=== PATIENT | male | born 1970 | race Caucasian/White ===

== ENCOUNTER → 2024-09-30 | Outpatient (CLI) | payer BC, SELFPAY ==
--- NOTE | 2024-09-30 11:00 | XR_ITS ---
Examination: Ultrasound-guided paracentesis Abdominal sonogram limited Date and time of exam: September 30, 2024 1326 hours INDICATIONS: Cirrhosis, increasing ascites and abdominal distention this week Informed consent provided. A timeout was completed verifying correct patient, procedure, site, positioning, and special adequate movement if applicable. Technique: Multiple sonographic images of the abdomen have been obtained. Appropriate area for paracentesis was marked. Local anesthesia is obtained with 1% lidocaine. Yueh catheter is successfully introduced. Findings: Abdominal sonographic images demonstrate sufficient ascitic fluid for paracentesis. After placing the Yueh catheter, 14,650 cc of fluid were successfully removed. During and after completion of the procedure the patient appear in satisfactory and stable condition with no complications observed. Estimated blood loss 0 cc Impression: Abdominal ascites Successful ultrasound-guided paracentesis as described above
== END | disposition home or self-care (01) ==
PROVIDERS: PCP Internal Medicine; Referring Provider Internal Medicine; Visit Provider Internal Medicine
DX: K70.31 Alcoholic cirrhosis of liver with ascites (principal)
CPT/HCPCS: 49083

== ENCOUNTER → 2025-01-14 | Outpatient (CLI) | payer BC, SELFPAY ==
--- NOTE | 2025-01-14 11:00 | XR_ITS ---
Examination: Ultrasound-guided paracentesis Abdominal sonogram limited Date and time of exam: 01/14/2025, 1:17 PM INDICATION: Ascites Informed consent provided. A timeout was completed verifying correct patient, procedure, site, positioning, and special adequate movement if applicable. Technique: Multiple sonographic images of the abdomen have been obtained. Appropriate area for paracentesis was marked. Local anesthesia is obtained with 1% lidocaine. Yueh catheter is successfully introduced. Findings: Abdominal sonographic images demonstrate sufficient ascitic fluid for paracentesis. After placing the Yueh catheter, 10,200 cc of fluid were successfully removed. During and after completion of the procedure the patient appear in satisfactory and stable condition with no complications observed. Estimated blood loss 0 cc Impression: Abdominal ascites Successful ultrasound-guided paracentesis as described above
[2025-01-14 12:48] LABS: Basophils % (Auto) 0 % (0-2.5); Eosinophils # (Auto) 0.1 Thou/mm3 (0.0-0.5); Eosinophils % (Auto) 2 % (0-10); Immature Granulocytes % (Auto) 0 % (0-0); Immature Granulocytes Auto 0.01 Thou/mm3 (0.00-0.00); Lymphocytes # (Auto) 0.4 Thou/mm3 (1.0-4.8); Lymphocytes % (Auto) 12 % (10-50); Mean Corpuscular HGB Conc 34.8 g/dl (31.0-37.0); Mean Corpuscular Hemoglobin 34.6 pg (25.0-35.0); Mean Corpuscular Volume 100 fL (80-100); Monocytes # (Auto) 0.4 Thou/mm3 (0.0-0.8); Monocytes % (Auto) 11 % (0-12); Neutrophils # (Auto) 2.7 Thou/mm3 (1.8-7.7); Neutrophils % (Auto) 75 % (37-80); Nucleated Red Blood Cell % 0 /100 WBC (0); RDW Standard Deviation 54.4 fL (35.1-43.9); Red Blood Count 2.31 Miln/mm3 (4.50-5.90); White Blood Count 3.6 Thou/mm3 (3.8-10.6)
[2025-01-14 12:50] LABS: Platelet Count 61 Thou/mm3 (140-440)
[2025-01-14 13:04] LABS: INR 1.3 (0.9-1.3); Prothrombin Time 13.8 Seconds (9.0-12.2)
[2025-01-14 13:07] LABS: Slide Review Platelets confirmed
[2025-01-14] MEDS: ALBUMIN HUMAN 25% IVPB 25 GM/100 ML BTL IV ×2 (14:38→15:09)
== END | disposition home or self-care (01) ==
PROVIDERS: PCP Nurse Practitioner Family; Referring Provider Internal Medicine; Visit Provider Nurse Practitioner Family
DX: R18.8 Other ascites (principal)
CPT/HCPCS: 49083; 36415; 85025; 85610; 85730; C1729; P9047

== ENCOUNTER 2025-01-31 06:45 | Emergency (ER) | payer BC, SELFPAY ==
[2025-01-31 06:46] VITALS: BP 135/76; PULSE 95; RESP 18; TEMP 36.9; O2SAT 99; BMI 41.9
--- NOTE | 2025-01-31 06:49 | XR_ITS ---
Examination: Ultrasound-guided paracentesis Abdominal sonogram limited Date and time of exam: January 23, 2025 1138 hours INDICATIONS: Cirrhosis, increasing abdominal distention this week Informed consent provided. A timeout was completed verifying correct patient, procedure, site, positioning, and special adequate movement if applicable. Technique: Multiple sonographic images of the abdomen have been obtained. Appropriate area for paracentesis was marked. Local anesthesia is obtained with 1% lidocaine. Yueh catheter is successfully introduced. Findings: Abdominal sonographic images demonstrate sufficient ascitic fluid for paracentesis. After placing the Yueh catheter, 11,700 cc of fluid were successfully removed. During and after completion of the procedure the patient appear in satisfactory and stable condition with no complications observed. Estimated blood loss 0 cc Impression: Abdominal ascites Successful ultrasound-guided paracentesis as described above
--- NOTE | 2025-01-31 07:13 | PD.EDRME ---
Rapid Medical Screening Exam E Arrival date/time: 01/31/25 06:45 54-year-old male with history of cirrhosis and ascites presents to the emergency department today for complaints of abdominal distention requesting paracentesis Chief Complaint: Abdominal Pain Time Seen by Provider: 01/31/25 06:56 Vital signs: Vital Signs Temperature 98.4 F 01/31/25 06:46 Pulse Rate 95 01/31/25 06:46 Respiratory Rate 18 01/31/25 06:46 Blood Pressure 135/76 H 01/31/25 06:46 Pulse Oximetry (%) 99 01/31/25 06:46 Oxygen Delivery Method Room Air 01/31/25 06:46
[2025-01-31 08:05] LABS: Basophils % (Auto) 0 % (0-2.5); Eosinophils # (Auto) 0.1 Thou/mm3 (0.0-0.5); Eosinophils % (Auto) 2 % (0-10); Hematocrit 23.3 % (41.0-53.0); Immature Granulocytes % (Auto) 0 % (0-0); Immature Granulocytes Auto 0.01 Thou/mm3 (0.00-0.00); Lymphocytes # (Auto) 0.4 Thou/mm3 (1.0-4.8); Lymphocytes % (Auto) 11 % (10-50); Mean Corpuscular HGB Conc 34.8 g/dl (31.0-37.0); Mean Corpuscular Hemoglobin 35.8 pg (25.0-35.0); Mean Corpuscular Volume 103 fL (80-100); Monocytes # (Auto) 0.7 Thou/mm3 (0.0-0.8); Monocytes % (Auto) 19 % (0-12); Neutrophils # (Auto) 2.5 Thou/mm3 (1.8-7.7); Neutrophils % (Auto) 67 % (37-80); Nucleated Red Blood Cell % 0 /100 WBC (0); Red Blood Count 2.26 Miln/mm3 (4.50-5.90); White Blood Count 3.7 Thou/mm3 (3.8-10.6)
[2025-01-31 08:12] LABS: Alanine Aminotransferase 34 U/L (10-49); Albumin, Serum 2.9 gm/dL (3.5-5.0); Albumin/Globulin Ratio 0.8 (1.2-2.2); Alkaline Phosphatase 194 U/L (46-116); Anion Gap 8 (7-16); Aspartate Amino Transferase 59 U/L (0-34); BUN/Creatinine Ratio 17 Ratio (12-20); Bilirubin,Total 0.8 mg/dL (0.3-1.2); Blood Urea Nitrogen 41 mg/dL (9-23); Calcium 7.8 mg/dL (8.3-10.6); Calcium (Corrected) 8.7 mg/dL (8.5-10.1); Chloride 113 mMol/L (98-107); Creatinine (Component) 2.4 mg/dL (0.6-1.3); Globulin 3.5 gm/dL (2.3-3.5); Glucose 134 mg/dL (74-106); Osmolality,Calculated 291 (275-295); Potassium 4.4 mMol/L (3.4-5.1); Sodium 140 mMol/L (136-145); Total Protein 6.4 gm/dL (5.7-8.2); eGFR 31 See Note
[2025-01-31 08:15] LABS: Hemoglobin 8.1 g/dL (13.5-16.0); Platelet Count 58 Thou/mm3 (140-440)
[2025-01-31 08:19] VITALS: BP 134/80; PULSE 67; RESP 19; TEMP 36.6; O2SAT 100
[2025-01-31 08:24] LABS: Slide Review Platelets confirmed
[2025-01-31 08:33] LABS: INR 1.4 (0.9-1.3); Partial Thromboplastin Time 29.9 Seconds (22.0-36.0)
--- NOTE | 2025-01-31 09:36 | PD.EDABDPN ---
ED Abdominal Pain RME/HPI General Chief Complaint: Abdominal Pain Stated complaint: NEEDS PARACENTESIS Time seen by provider: 01/31/25 06:56 Arrival date/time: 01/31/25 06:45 RME / HPI RME / HPI narrative: 01/31/25 06:45 54-year-old male with history of cirrhosis and ascites presents to the emergency department today for complaints of abdominal distention requesting paracentesis DR. NEVILLE MAIN ED EVALUATION: 54 year old male with past medical history significant for liver cirrhosis with ascites due to chronic alcohol use disorder presents to the Emergency Department with complaint of abdominal distention, requesting paracentesis. Last drained was 01/14/2025. Otherwise denies any pain or shortness of breath. No fevers or chills. No other symptoms reported a this time. Related Data Home Medications ?Medication ?Instructions ?Recorded ?Confirmed furosemide 80 mg tablet 80 mg PO 1XD 08/07/24 08/07/24 Held on 08/12/24. Instructions: Resume on 08/23/24. Follow-up with PCP before resuming furosemide propranolol 10 mg tablet 10 mg 3XD 08/07/24 08/07/24 Previous Rx's ?Medication ?Instructions ?Recorded spironolactone 25 mg tablet 25 mg PO QDAY #30 tabs 11/02/23 Held on 08/12/24. Instructions: Resume on 08/23/24. Hold spironolactone until you follow-up with PCP Allergies Allergy/AdvReac Type Severity Reaction Status Date / Time No Known Allergies Allergy Verified 01/31/25 06:47 Review of Systems Review of Systems Systems Reviewed: All systems reviewed, normal except as documented Past Medical History Past Medical History NEUROLOGIC: Positive Neurological Disorders CARDIAC: Positive Cardiac Disorders and Hypertension GASTROINTESTINAL: Positive Gastrointestinal Disorders, Cirrhosis and Obesity HEMATOLOGIC: Positive Blood Disorders and Anemia OTHER HISTORY: Positive Blood Transfusions, Chicken Pox, Measles and Mumps Family History FAMILY HISTORY: Positive Family Cardiac Disorders Social History SMOKING STATUS: Never smoker SUBSTANCE USE: does not use ALCOHOL: Never ED Exam Narrative Physical exam: GENERAL APPEARANCE: alert and oriented x 4, well-developed, well-nourished, no acute distress VITALS: All vitals were reviewed and the pulse ox is 100% on room air, which is normal according to my interpretation. HEENT: Normocephalic, atraumatic; pupils equal, round, reactive to light; EOMI; mucous membranes pink, moist; oropharynx clear NECK: Supple LUNGS: CTABL; no wheezes, no rales, no rhonchi HEART: Regular rate, regular rhythm; normal S1, S2; no murmurs ABDOMEN: distended with fluid wave; normal BS; soft, no tenderness, no guarding, no rebound; no masses, no organomegaly, no hernia BACK: no CVA tenderness EXTREMITIES: atraumatic; no edema NEUROLOGIC: awake; alert and oriented x4; cranial nerves II-XII grossly intact; no focal sensory or motor deficits PSYCHIATRIC: appropriate mood and affect SKIN: warm, dry, normal color; no rashes Course Quality Measures none Orders Category Date Time Status US paracentesis abd w/image Stat Exams 01/31/25 06:49 Completed CBC Stat Lab 01/31/25 07:45 Completed Comprehensive Metabolic Panel Stat Lab 01/31/25 07:45 Completed Partial Thromboplastin Time Stat Lab 01/31/25 07:45 Completed Prothrombin Time with INR Stat Lab 01/31/25 07:45 Completed Lidocaine 1% Pf 30 ml [Xylocaine 1% Pf 30 ml] Med 01/31/25 11:17 Discontinued 30 ml .ROUTE .STK-MED ONE Reevaluation(s) Reevaluation #1: 11.7 liters were removed. I recommended albumin but the patient is leaving AMA. This patient is choosing to leave against medical advice. I have personally explained to the patient that choosing to do so may result in permanent bodily harm or . I discussed a great length that without further evaluation and monitoring there may be unforeseen circumstances and deterioration causing permanent bodily harm or as a result of their choice. The patient is alert, oriented and competent at this time. The patient states that they are aware of the serious risks as explained, but they continue to wish to leave against medical advice. In light of their decision to leave AMA, follow-up has been arranged and they are aware of the importance of following up as instructed. They have been advised that they should return to the ED immediately if they change their mind at any time, or if their condition begins to change or worsen. Time: 14:06 Vital Signs Vital signs: Vital Signs Temperature 98.4 F 01/31/25 06:46 Pulse Rate 95 01/31/25 06:46 Respiratory Rate 18 01/31/25 06:46 Blood Pressure 135/76 H 01/31/25 06:46 Pulse Oximetry (%) 99 01/31/25 06:46 Oxygen Delivery Method Room Air 01/31/25 06:46 Abdominal Pain MDM MDM Narrative MDM Narrative:: Lurdes Arora, yesenia scribing for and in the presence of Dr. Neville. Patient data External records reviewed:: [facility] previous records (Reviewed last admission discharge dated 08/12/24, patient admitted for the following: Acute upper GI bleed) Clinical information provided by:: patient Social determinants that could affect healthcare access:: alcohol use Patient has the following chronic illnesses:: liver cirrhosis with ascites due to chronic alcohol use disorder How is presenting disease/condition affected by chronic disease/condition?: caused by Evaluation data The following diagnostics were reviewed and interpreted by me:: lab results and radiology exam(s) Lab and/or radiology exams considered but not ordered:: none Interpretation Summary: Procedure(s): US paracentesis abd w/image Accession Number(s): [id number] cc: Kristin (JANA),Jaylen BATES; Ace Justice MD; Israel Eason MD~ Examination: Ultrasound-guided paracentesis Abdominal sonogram limited Date and time of exam: January 23, 2025 1138 hours INDICATIONS: Cirrhosis, increasing abdominal distention this week Informed consent provided. A timeout was completed verifying correct patient, procedure, site, positioning, and special adequate movement if applicable. Technique: Multiple sonographic images of the abdomen have been obtained. Appropriate area for paracentesis was marked. Local anesthesia is obtained with 1% lidocaine. Yueh catheter is successfully introduced. Findings: Abdominal sonographic images demonstrate sufficient ascitic fluid for paracentesis. After placing the Yueh catheter, 11,700 cc of fluid were successfully removed. During and after completion of the procedure the patient appear in satisfactory and stable condition with no complications observed. Estimated blood loss 0 cc Impression: Abdominal ascites Successful ultrasound-guided paracentesis as described above Dictated By: Ace Justice Medications / Prescriptions Medications or Prescriptions considered but not ordered:: none Medication administrations:: Medication Administration History Discontinued Medications Lidocaine HCl (Lidocaine Inj Pf 1% 30 Ml Vial) Confirm Administered Dose 30 ml .ROUTE .[facility]-MED ONE Stop: 01/31/25 11:18 see above if any Consultations Consultation(s) initiated? (list below): No Consultation #1 (Physician, Specialty, Details): left AMA Diagnosis Differential diagnosis abdominal pain: abdominal pain and other (ascites, CHF) Most likely diagnosis given after review of the tests above:: Ascites Status post abdominal paracentesis Admission Indicated Admission indicated?: not indicated Admission Request Was there a request for admission?: No Disposition Plan Disposition Plan: other (specify) (AMA) Discharge Plan Plan Patient Disposition: Left Against Medical Advice Prescriptions/Referrals Prescriptions/Med Rec: No Action spironolactone 25 mg tablet 25 mg PO QDAY Qty: 30 2RF propranolol 10 mg tablet 10 mg 3XD Patient Comments: TAKE 1 TABLET BY MOUTH THREE TIMES DAILY furosemide 80 mg tablet 80 mg PO 1XD Patient Comments: TAKE 1 TABLET BY MOUTH ONCE DAILY Referrals: Israel Helm MD [Primary Care Provider] - In 1 week Problem List Clinical Impression: Ascites, Status post abdominal paracentesis Patient/Caregiver Discharge Instructions Education Materials: Paracentesis Print Language: Faroese
[2025-01-31 10:00] VITALS: BP 124/84; PULSE 67; RESP 18; TEMP 36.6; O2SAT 100
--- NOTE | 2025-01-31 11:34 | PC.NURSE ---
PT TAKEN TO ULTRASOUND VIA W/C ACCOMPANIED BY U/S TECH.
--- NOTE | 2025-01-31 12:52 | PC.NURSE ---
Addendum entered by Priya John RN 01/31/25 13:37: 11.7 LITERS REMOVED. PT IS ANXIOUS TO BE DISCHARGED. Original Note: PT RETURNED FROM ULTRASOUND. PT AMB TO BR UNASSISTED; STABLE ON FEET.
--- NOTE | 2025-01-31 14:08 | PC.NURSE ---
PT REFUSED THE ALBUMIN DR. ALEMAN WAS GOING TO ORDER; SHE SAID TO HAVE THE PT SIGN THE AMA FORM SINCE HE WAS NOT GOING TO FOLLOW MD ORDERS. PT SIGNED FORM; IV DC'D W/O DIFFICULTY, PT TOLERATED WELL. PT AMB TO ER ENTRANCE.
== END 2025-01-31 14:08 | disposition left against medical advice (07) ==
PROVIDERS: Nurse Practitioner Primary Care; Emergency Provider Emergency Medicine; PCP Internal Medicine
DX: K70.31 Alcoholic cirrhosis of liver with ascites (principal)
CPT/HCPCS: 49083; 36415; 80053; 85025; 85610; 85730; 99284; C1729

== ENCOUNTER → 2025-03-01 | Outpatient (CLI) | payer BC, SELFPAY ==
--- NOTE | 2025-03-01 11:00 | XR_ITS ---
Examination: Ultrasound-guided paracentesis Abdominal sonogram limited Date and time of exam: March 01, 2025 1216 hours INDICATIONS: Cirrhosis, increasing ascites and abdominal distention this week Informed consent provided. A timeout was completed verifying correct patient, procedure, site, positioning, and special adequate movement if applicable. Technique: Multiple sonographic images of the abdomen have been obtained. Appropriate area for paracentesis was marked. Local anesthesia is obtained with 1% lidocaine. Yueh catheter is successfully introduced. Findings: Abdominal sonographic images demonstrate sufficient ascitic fluid for paracentesis. After placing the Yueh catheter, 13,050 cc of fluid were successfully removed. During and after completion of the procedure the patient appear in satisfactory and stable condition with no complications observed. Estimated blood loss 0 cc Impression: Abdominal ascites Successful ultrasound-guided paracentesis as described above
== END | disposition home or self-care (01) ==
PROVIDERS: Referring Provider Nurse Practitioner Family; Visit Provider Nurse Practitioner Family
DX: K70.31 Alcoholic cirrhosis of liver with ascites (principal)
CPT/HCPCS: 49083; C1729

== ENCOUNTER 2025-03-10 18:26 | Emergency (ER) | payer BC, SELFPAY ==
[2025-03-10 18:27] VITALS: BMI 40.3
[2025-03-10 19:57] VITALS: BP 121/75; PULSE 89; RESP 17; TEMP 37.2; O2SAT 98
--- NOTE | 2025-03-10 20:06 | XR_ITS ---
Examination: Abdomen sonogram, Limited Date and time of exam: March 10, 2025 2031 hours INDICATIONS: Cirrhosis with abdominal distention this week Technique: Real-time hartman scale transabdominal sonographic images of the abdomen obtained. Findings: Moderate ascites IMPRESSION: Moderate ascites
[2025-03-10 20:53] LABS: Basophils % (Auto) 0 % (0-2.5); Eosinophils % (Auto) 1 % (0-10); Immature Granulocytes % (Auto) 0 % (0-0); Immature Granulocytes Auto 0.02 Thou/mm3 (0.00-0.00); Lymphocytes # (Auto) 0.4 Thou/mm3 (1.0-4.8); Lymphocytes % (Auto) 8 % (10-50); Mean Corpuscular HGB Conc 34.2 g/dl (31.0-37.0); Mean Corpuscular Volume 100 fL (80-100); Monocytes # (Auto) 0.6 Thou/mm3 (0.0-0.8); Monocytes % (Auto) 13 % (0-12); Neutrophils # (Auto) 3.8 Thou/mm3 (1.8-7.7); Neutrophils % (Auto) 78 % (37-80); Nucleated Red Blood Cell % 0 /100 WBC (0); Platelet Count 99 Thou/mm3 (140-440); RDW Standard Deviation 53.1 fL (35.1-43.9); Red Blood Count 2.03 Miln/mm3 (4.50-5.90); White Blood Count 4.9 Thou/mm3 (3.8-10.6)
--- NOTE | 2025-03-10 21:00 | PD.EDRECHK ---
ED Recheck Abnl Lab Rx-RME/HPI General Chief Complaint: General Adult/Misc Complain Stated Complaint: NEEDS BLOOD TRANSFUSION, FATIGUE, MIND FOG Time Seen by Provider: 03/10/25 19:56 Arrival date/time: 03/10/25 18:26 43M with history of alcoholic cirrhosis presents to ED for generalized weakness and needing blood transfusion due to low outpatient labs. Patient denies bloody emesis and dark/red stool. Patient would like to be tapped if he can in the morning. Limitations: no limitations Related Data Home Medications ?Medication ?Instructions ?Recorded ?Confirmed furosemide 80 mg tablet 80 mg PO 1XD 08/07/24 08/07/24 Held on 08/12/24. Instructions: Resume on 08/23/24. Follow-up with PCP before resuming furosemide propranolol 10 mg tablet 10 mg 3XD 08/07/24 08/07/24 Previous Rx's ?Medication ?Instructions ?Recorded spironolactone 25 mg tablet 25 mg PO QDAY #30 tabs 11/02/23 Held on 08/12/24. Instructions: Resume on 08/23/24. Hold spironolactone until you follow-up with PCP Allergies Allergy/AdvReac Type Severity Reaction Status Date / Time No Known Allergies Allergy Verified 03/10/25 18:28 Review of Systems Review of Systems Systems Reviewed: All systems reviewed, normal except as documented Constitutional Constitutional: Reports system reviewed and no additional complaints, except as documented, Reports as per HPI, Denies fever(s), Denies headache(s) and Reports weakness ENT Ears, Nose, Mouth, and Throat: Denies disequilibrium and Denies headache(s) Cardiovascular Cardiovascular: Reports system reviewed and no additional complaints, except as documented, Denies chest pain and Denies dyspnea Respiratory Respiratory: Reports system reviewed and no additional complaints, except as documented, Denies cough and Denies dyspnea Gastrointestinal Gastrointestinal: Reports system reviewed and no additional complaints, except as documented, Denies abdominal pain, Denies nausea and Denies vomiting Neurologic Neurologic: Reports system reviewed and no additional complaints, except as documented, Denies confusion, Denies disequilibrium, Denies headache(s) and Reports weakness Psychiatric Psychiatric: Denies confusion Past Medical History Past Medical History NEUROLOGIC: Positive Neurological Disorders; Negative Seizures CARDIAC: Positive Cardiac Disorders and Hypertension; Negative Hypercholesterolemia or Congestive Heart Failure RESPIRATORY: Negative Chronic Obstructive Pulmonary Disease (COPD) or Asthma GASTROINTESTINAL: Positive Gastrointestinal Disorders, Cirrhosis and Obesity; Negative Pancreatitis, Gastrointestinal Bleed, Hemorrhoids or Gastroesophageal Reflux Disease GENITOURINARY: Negative Genitourinary Disorders, Renal Disease or Kidney Stones MUSCULOSKELETAL: Negative Musculoskeletal Disorders, Arthritis or Carpal Tunnel Syndrome ENT: Negative Cataracts ENDOCRINE: Negative Endocrine Disorders, Diabetes Mellitus Type 1 or Diabetes Mellitus Type 2 HEMATOLOGIC: Positive Blood Disorders and Anemia; Negative Sickle Cell Disease or Clotting Problems OTHER HISTORY: Positive Blood Transfusions, Chicken Pox, Measles and Mumps; Negative Autoimmune Disease, Falls, Blood Transfusion Reaction, Anesthesia Reactions or Cancer Family History FAMILY HISTORY: Positive Family Cardiac Disorders; Negative Family Psychiatric Problems, Family Respiratory Disorders, Family Gastrointestinal Problems, Family Cancer, Family Surgery or Family Anesthesia Reaction Surgical History SURGICAL: Negative Ear Surgery, Tympanostomy Tube, Eye Surgery, Nose Surgery, Oral Surgery, Tonsillectomy, Adenoidectomy, Cochlear Implant, Corneal Transplant, Throat Surgery, Abdominal Surgery, Tracheostomy, Gastric Bypass Surgery, Gastrostomy, Bowel Surgery, Nephrectomy, Transurethral Resection, Joint Replacement, Amputation, Open Reduction Internal Fixation, Arthroscopy, Neurologic Surgery, Brain Shunt or Vasectomy Social History SMOKING STATUS: Never smoker SUBSTANCE USE: does not use ED Exam General Limitations: Present no limitations General appearance: Present alert and in no apparent distress Head Head exam: Present atraumatic Eye Eye exam: Present normal appearance, PERRL and EOMI ENT ENT exam: Present normal exam, normal oropharynx and mucous membranes moist Neck Neck exam: Present normal inspection, full ROM and trachea midline Chest Chest inspection: Present normal inspection and symmetric chest wall rise Respiratory Respiratory exam: Present normal lung sounds bilaterally Cardiovascular Cardiovascular exam: Present regular rate, normal rhythm and normal heart sounds Abdominal Exam Abdominal exam: Present soft and normal bowel sounds Extremities Exam Extremities exam: Present normal inspection and full ROM Back Exam Back exam: Present normal inspection and full ROM Neurological Exam Neurological exam: Present alert, oriented X3 and CN II-XII intact Psychiatric Psychiatric exam: Present normal affect and normal mood Skin Skin exam: Present warm, dry, intact and normal color Course Quality Measures none Orders Category Date Time Status Insert IV NOW Care 03/10/25 21:45 Completed US abdomen limited Stat Exams 03/10/25 20:06 Completed US paracentesis abd w/image Stat Exams 03/11/25 05:14 Completed CBC Stat Lab 03/10/25 20:30 Completed CMP [Comprehensive Metabolic Panel] Stat Lab 03/10/25 20:30 Completed INR [Prothrombin Time with INR] Stat Lab 03/10/25 20:30 Completed PTT [Partial Thromboplastin Time] Stat Lab 03/10/25 20:30 Completed Path Review Blood Smear Stat Lab 03/10/25 20:30 Completed Type and Screen Stat Lab 03/10/25 20:30 Completed prbc [Red Blood Cells] Stat Lab 03/10/25 20:30 Completed Lidocaine 1% Pf 30 ml [Xylocaine 1% Pf 30 ml] Med 03/11/25 10:16 Discontinued 30 ml .ROUTE .STK-MED ONE Vital Signs Vital signs: Vital Signs Temperature 98.9 F 03/10/25 19:57 Pulse Rate 89 03/10/25 19:57 Respiratory Rate 17 03/10/25 19:57 Blood Pressure 121/75 03/10/25 19:57 Pulse Oximetry (%) 98 03/10/25 19:57 Oxygen Delivery Method Room Air 03/10/25 19:57 O2 at 98% on RA and WNLs Recheck / Abnormal Lab / Rx MDM Narrative MDM Narrative:: 43M with history of alcoholic cirrhosis presents to ED for generalized weakness and needing blood transfusion due to low outpatient labs. Patient denies bloody emesis and dark/red stool. Patient would like to be tapped if he can in the morning. Physical exam reveals well-appearing but tired male. Speech normal. Patient does not seem confused. Patient is afebrile, calm, and alert. HgB 6.9. Platelets 99. Coags and CMP unremarkable. US reveals moderate ascites. Patient would like to be tapped in AM. Patient given 2 units blood w/o issue. Ammonia normal. Care signed out to colleague. Patient was tapped and discharged. Patient data External records reviewed:: [facility] previous records Clinical information provided by:: patient Social determinants that could affect healthcare access:: alcohol use Patient has the following chronic illnesses:: alcoholic cirrhosis How is presenting disease/condition affected by chronic disease/condition?: caused by Evaluation data The following diagnostics were reviewed and interpreted by me:: lab results and radiology exam(s) Lab and/or radiology exams considered but not ordered:: ordered Interpretation Summary: above Medications / Prescriptions Medications or Prescriptions considered but not ordered:: ordered Medication administrations:: Medication Administration History Discontinued Medications Lidocaine HCl (Lidocaine Inj Pf 1% 30 Ml Vial) Confirm Administered Dose 30 ml .ROUTE .STK-MED ONE Stop: 03/11/25 10:17 above Consultations Consultation(s) initiated? (list below): No Diagnosis Recheck Differential Diagnosis: encounter for medication refill, encounter for wound recheck, encounter for recheck of burn, encounter for removal of sutures, warfarin-induced coagulopathy and other (anemia, ascites) Most likely diagnosis given after review of the tests above:: acites and anemia Admission Indicated Admission indicated?: not indicated Admission Request Was there a request for admission?: No Disposition Plan Disposition Plan: Discharge Discharge Attestation Discharge Attestation: The patient and all family members were given an opportunity to ask questions and understood the discharge instructions. Discharge instructions specifically effects, indications for sooner follow up or return to the emergency department, and the expected course of current diagnosis. Patient condition: Stable Discharge Plan Plan Patient Disposition: HOME (Self Care) Discharge Disposition comment: Stable Prescriptions/Referrals Prescriptions/Med Rec: No Action spironolactone 25 mg tablet 25 mg PO QDAY Qty: 30 2RF propranolol 10 mg tablet 10 mg 3XD Patient Comments: TAKE 1 TABLET BY MOUTH THREE TIMES DAILY furosemide 80 mg tablet 80 mg PO 1XD Patient Comments: TAKE 1 TABLET BY MOUTH ONCE DAILY Referrals: No Primary/Family,Physician [Primary Care Provider] - In 1 week Problem List Clinical Impression: Ascites due to alcoholic cirrhosis, Anemia Patient/Caregiver Discharge Instructions Education Materials: Paracentesis, Paracentesis Dc, ED Ascites, ED Cirrhosis Additional Instructions: Please follow-up with PCP within 24-48 hours and return immediately if symptoms worsen. Print Language: Ghanaian Stand Alone Forms: Patient Portal Info Letter QUINTON/MARILU Supervising Physician QUINTON/MARILU Supervising Physician: Dr. Boyer
[2025-03-10 21:07] LABS: Alanine Aminotransferase 21 U/L (10-49); Albumin, Serum 2.8 gm/dL (3.5-5.0); Albumin/Globulin Ratio 0.8 (1.2-2.2); Alkaline Phosphatase 165 U/L (46-116); Anion Gap 12 (7-16); Aspartate Amino Transferase 37 U/L (0-34); BUN/Creatinine Ratio 20 Ratio (12-20); Bilirubin,Total 0.7 mg/dL (0.3-1.2); Blood Urea Nitrogen 53 mg/dL (9-23); Calcium 7.9 mg/dL (8.3-10.6); Calcium (Corrected) 8.9 mg/dL (8.5-10.1); Carbon Dioxide 15.1 mMol/L (20.0-31.0); Chloride 107 mMol/L (98-107); Creatinine (Component) 2.7 mg/dL (0.6-1.3); Estimated Creatinine Clearance 37.4 mL/min (>60); Globulin 3.7 gm/dL (2.3-3.5); Glucose 102 mg/dL (74-106); Osmolality,Calculated 282 (275-295); Potassium 4.7 mMol/L (3.4-5.1); Sodium 134 mMol/L (136-145); Total Protein 6.5 gm/dL (5.7-8.2); eGFR 27 See Note
[2025-03-10 21:17] LABS: INR 1.4 (0.9-1.3); Partial Thromboplastin Time 35.5 Seconds (22.0-36.0); Prothrombin Time 14.7 Seconds (9.0-12.2)
[2025-03-10 21:40] LABS: Hematocrit 20.2 % (41.0-53.0); Hemoglobin 6.9 g/dL (13.5-16.0)
[2025-03-10 23:49] LABS: Path Review Blood Smear Sent to Pathologist
[2025-03-11] VITALS (28 sets, daily range): BP systolic 91–146; BP diastolic 44–87; PULSE 65–105; RESP 17–23; TEMP 36.4–37; O2SAT 91–100
--- NOTE | 2025-03-11 05:14 | XR_ITS ---
Examination: Ultrasound-guided paracentesis Abdominal sonogram limited Date and time of exam: March 11, 2025 1020 hours INDICATIONS: Cirrhosis, increasing ascites and abdominal distention this week Informed consent provided. A timeout was completed verifying correct patient, procedure, site, positioning, and special adequate movement if applicable. Technique: Multiple sonographic images of the abdomen have been obtained. Appropriate area for paracentesis was marked. Local anesthesia is obtained with 1% lidocaine. Yueh catheter is successfully introduced. Findings: Abdominal sonographic images demonstrate sufficient ascitic fluid for paracentesis. After placing the Yueh catheter, 9000 cc of fluid were successfully removed. During and after completion of the procedure the patient appear in satisfactory and stable condition with no complications observed. Estimated blood loss 0 cc Impression: Abdominal ascites Successful ultrasound-guided paracentesis as described above
--- NOTE | 2025-03-11 06:05 | PC.NURSE ---
Pt resting with eyes closed. Respirations are even and unlabored. No s/s of acute distress noted. Call light within reach, plan of care ongoing.
== END 2025-03-11 11:56 | disposition home or self-care (01) ==
PROVIDERS: Physician Assistant; Emergency Provider Emergency Medicine
DX: K70.31 Alcoholic cirrhosis of liver with ascites (principal); D64.9 Anemia, unspecified
CPT/HCPCS: 49083; 36415; 36430; 76705; 80053; 85025; 85610; 85730; 86850; 86900; 86901; 86921; 86922; 99285; C1729; P9016

== ENCOUNTER 2025-03-31 21:41 | Emergency (ER) | payer BC, SELFPAY ==
[2025-03-31 22:21] VITALS: BP 111/69; BP 117/44; PULSE 100; RESP 20; TEMP 37.1; O2SAT 96; BMI 41.9
--- NOTE | 2025-03-31 22:26 | PD.EDRME ---
Rapid Medical Screening Exam [facility] Arrival date/time: 03/31/25 21:41 54M with history of alcoholic cirrhosis presents to ED for generalized weakness and needing blood transfusion due to low outpatient labs. Patient denies bloody emesis and dark/red stool. Patient would like to be tapped if he can in the morning. Patient's hemoglobin was 7.6, which doesn't meet criteria for transfusion. Platelets 127. Patient does not want to wait until AM for para so will return in AM. Chief Complaint: General Adult/Misc Complain Vital signs: Vital Signs Temperature 98.8 F 03/31/25 22:21 Pulse Rate 100 03/31/25 22:21 Respiratory Rate 20 03/31/25 22:21 Blood Pressure 117/44 L 03/31/25 22:21 Pulse Oximetry (%) 96 03/31/25 22:21 Oxygen Delivery Method Room Air 03/31/25 22:21
[2025-03-31 23:06] LABS: Basophils % (Auto) 0 % (0-2.5); Eosinophils # (Auto) 0.1 Thou/mm3 (0.0-0.5); Eosinophils % (Auto) 2 % (0-10); Hematocrit 22.2 % (41.0-53.0); Immature Granulocytes % (Auto) 1 % (0-0); Immature Granulocytes Auto 0.05 Thou/mm3 (0.00-0.00); Lymphocytes # (Auto) 0.5 Thou/mm3 (1.0-4.8); Lymphocytes % (Auto) 6 % (10-50); Mean Corpuscular HGB Conc 34.2 g/dl (31.0-37.0); Mean Corpuscular Hemoglobin 32.2 pg (25.0-35.0); Mean Corpuscular Volume 94 fL (80-100); Monocytes # (Auto) 0.6 Thou/mm3 (0.0-0.8); Monocytes % (Auto) 8 % (0-12); Neutrophils # (Auto) 6.2 Thou/mm3 (1.8-7.7); Neutrophils % (Auto) 83 % (37-80); Nucleated Red Blood Cell % 0 /100 WBC (0); Platelet Count 127 Thou/mm3 (140-440); RDW Standard Deviation 53.9 fL (35.1-43.9); Red Blood Count 2.36 Miln/mm3 (4.50-5.90); White Blood Count 7.4 Thou/mm3 (3.8-10.6)
[2025-03-31 23:12] LABS: Alanine Aminotransferase 19 U/L (10-49); Albumin, Serum 2.8 gm/dL (3.5-5.0); Albumin/Globulin Ratio 0.7 (1.2-2.2); Alkaline Phosphatase 168 U/L (46-116); Anion Gap 14 (7-16); Aspartate Amino Transferase 37 U/L (0-34); BUN/Creatinine Ratio 23 Ratio (12-20); Bilirubin,Total 0.7 mg/dL (0.3-1.2); Blood Urea Nitrogen 70 mg/dL (9-23); Calcium 7.5 mg/dL (8.3-10.6); Calcium (Corrected) 8.5 mg/dL (8.5-10.1); Carbon Dioxide 19.9 mMol/L (20.0-31.0); Chloride 102 mMol/L (98-107); Estimated Creatinine Clearance 34.4 mL/min (>60); Globulin 3.9 gm/dL (2.3-3.5); Glucose 125 mg/dL (74-106); INR 1.4 (0.9-1.3); Osmolality,Calculated 293 (275-295); Partial Thromboplastin Time 34.1 Seconds (22.0-36.0); Potassium 3.5 mMol/L (3.4-5.1); Prothrombin Time 14.9 Seconds (9.0-12.2); Sodium 136 mMol/L (136-145); Total Protein 6.7 gm/dL (5.7-8.2); eGFR 24 See Note
[2025-03-31 23:13] LABS: Hemoglobin 7.6 g/dL (13.5-16.0)
--- NOTE | 2025-03-31 23:51 | PC.NURSE ---
PT INFORMED TODD PA THAT HE WILL GO HOME.
== END 2025-03-31 23:53 | disposition left against medical advice (07) ==
LOC: SERX 22:48
PROVIDERS: Physician Assistant; Emergency Provider Emergency Medicine
DX: R53.1 Weakness (principal); Z53.29 Procedure and treatment not carried out because of patient's decision for other reasons
CPT/HCPCS: 36415; 80053; 85025; 85610; 85730; 86850; 86900; 86901; 99281

== ENCOUNTER 2025-04-01 07:17 | Emergency (ER) | payer BC, SELFPAY ==
[2025-04-01 07:47] VITALS: BP 135/80; PULSE 84; RESP 20; TEMP 36.7; O2SAT 100; BMI 40.0
--- NOTE | 2025-04-01 08:16 | XR_ITS ---
Examination: Ultrasound-guided paracentesis Abdominal sonogram limited Date and time of exam: April 01, 2025 0954 hours INDICATIONS: Cirrhosis increasing abdominal distention this week Informed consent provided. A timeout was completed verifying correct patient, procedure, site, positioning, and special adequate movement if applicable. Technique: Multiple sonographic images of the abdomen have been obtained. Appropriate area for paracentesis was marked. Local anesthesia is obtained with 1% lidocaine. Yueh catheter is successfully introduced. Findings: Abdominal sonographic images demonstrate sufficient ascitic fluid for paracentesis. After placing the Yueh catheter, [id number] cc of fluid were successfully removed. During and after completion of the procedure the patient appear in satisfactory and stable condition with no complications observed. Estimated blood loss 0 cc Impression: Abdominal ascites Successful ultrasound-guided paracentesis as described above
--- NOTE | 2025-04-01 08:17 | EDRME_ITS ---
Rapid Medical Screening Exam [facility] Arrival date/time: 04/01/25 07:17 54-year-old male with a history of alcoholic liver cirrhosis, anemia, presents to the emergency room with a chief complaint of abdominal distention, shortness of breath x 3 days. Patient is here for an abdominal paracentesis. His last paracentesis was 1 month ago and they removed 11 L. I have greeted and performed a focused initial assessment of this patient. A comprehensive ED assessment and evaluation of the patient, analysis of all test results, and completion of the medical decision making process will be conducted by additional ED providers. Chief Complaint: Weakness Time Seen by Provider: 04/01/25 08:07 Vital signs: Vital Signs Temperature 98.1 F 04/01/25 07:47 Pulse Rate 84 04/01/25 07:47 Respiratory Rate 20 04/01/25 07:47 Blood Pressure 135/80 H 04/01/25 07:47 Pulse Oximetry (%) 100 04/01/25 07:47 Oxygen Delivery Method Room Air 04/01/25 07:47 Vital signs reviewed by provider: Yes
[2025-04-01 08:50] LABS: Basophils % (Auto) 0 % (0-2.5); Eosinophils # (Auto) 0.1 Thou/mm3 (0.0-0.5); Eosinophils % (Auto) 2 % (0-10); Hematocrit 24.1 % (41.0-53.0); Immature Granulocytes % (Auto) 1 % (0-0); Immature Granulocytes Auto 0.06 Thou/mm3 (0.00-0.00); Lymphocytes # (Auto) 0.4 Thou/mm3 (1.0-4.8); Lymphocytes % (Auto) 7 % (10-50); Mean Corpuscular Hemoglobin 32.3 pg (25.0-35.0); Mean Corpuscular Volume 95 fL (80-100); Monocytes # (Auto) 0.6 Thou/mm3 (0.0-0.8); Monocytes % (Auto) 11 % (0-12); Neutrophils # (Auto) 4.2 Thou/mm3 (1.8-7.7); Neutrophils % (Auto) 79 % (37-80); Nucleated Red Blood Cell % 0 /100 WBC (0); Platelet Count 115 Thou/mm3 (140-440); RDW Standard Deviation 54.6 fL (35.1-43.9); Red Blood Count 2.54 Miln/mm3 (4.50-5.90); White Blood Count 5.3 Thou/mm3 (3.8-10.6)
[2025-04-01 08:57] LABS: Hemoglobin 8.2 g/dL (13.5-16.0)
[2025-04-01 09:05] LABS: INR 1.4 (0.9-1.3); Partial Thromboplastin Time 35.2 Seconds (22.0-36.0); Prothrombin Time 14.6 Seconds (9.0-12.2)
[2025-04-01 09:06] LABS: Alanine Aminotransferase 19 U/L (10-49); Albumin, Serum 2.6 gm/dL (3.5-5.0); Albumin/Globulin Ratio 0.6 (1.2-2.2); Alkaline Phosphatase 175 U/L (46-116); Anion Gap 9 (7-16); Aspartate Amino Transferase 34 U/L (0-34); BUN/Creatinine Ratio 24 Ratio (12-20); Bilirubin,Total 0.6 mg/dL (0.3-1.2); Blood Urea Nitrogen 68 mg/dL (9-23); Calcium 7.3 mg/dL (8.3-10.6); Calcium (Corrected) 8.4 mg/dL (8.5-10.1); Carbon Dioxide 20.3 mMol/L (20.0-31.0); Chloride 107 mMol/L (98-107); Creatinine (Component) 2.8 mg/dL (0.6-1.3); Estimated Creatinine Clearance 35.9 mL/min (>60); Globulin 4.2 gm/dL (2.3-3.5); Glucose 122 mg/dL (74-106); Osmolality,Calculated 292 (275-295); Sodium 136 mMol/L (136-145); Total Protein 6.8 gm/dL (5.7-8.2); eGFR 26 See Note
--- NOTE | 2025-04-01 09:35 | PD.EDRECHK ---
ED Recheck Abnl Lab Rx-RME/HPI General Chief Complaint: Weakness Stated Complaint: Abdominal distention X 1 month, tired Time Seen by Provider: 04/01/25 08:07 Arrival date/time: 04/01/25 07:17 Limitations: no limitations RME / HPI RME / HPI narrative: 04/01/25 07:17 54-year-old male with a history of alcoholic liver cirrhosis, anemia, presents to the emergency room with a chief complaint of abdominal distention, shortness of breath x 3 days. Patient is here for an abdominal paracentesis. His last paracentesis was 1 month ago and they removed 11 L. I have greeted and performed a focused initial assessment of this patient. A comprehensive ED assessment and evaluation of the patient, analysis of all test results, and completion of the medical decision making process will be conducted by additional ED providers. DR. REESE MAIN ED EVALUATION: 54 year old male with history of liver cirrhosis with ascites secondary to chronic alcohol use disorder and anemia, presents to the ED requesting paracentesis for worsening abdominal distention over the past few weeks. Patient additionally reports he was sent here by his PCP yesterday for evaluation of low hemoglobin and potential blood transfusion. However, repeat HGB is 7.6 and did not meet transfusion criteria. Patient denies any other associated symptoms, including fevers, chills, sweats, chest pain, cough, shortness of breath, abdominal pain, nausea/vomiting/diarrhea, or urinary symptoms. Related Data Home Medications ?Medication ?Instructions ?Recorded ?Confirmed furosemide 80 mg tablet 80 mg PO 1XD 08/07/24 08/07/24 Held on 08/12/24. Instructions: Resume on 08/23/24. Follow-up with PCP before resuming furosemide propranolol 10 mg tablet 10 mg 3XD 08/07/24 08/07/24 Previous Rx's ?Medication ?Instructions ?Recorded spironolactone 25 mg tablet 25 mg PO QDAY #30 tabs 11/02/23 Held on 08/12/24. Instructions: Resume on 08/23/24. Hold spironolactone until you follow-up with PCP furosemide 40 mg tablet (Lasix) 40 mg PO QDAY #30 tabs 04/01/25 spironolactone 100 mg tablet 100 mg PO QDAY #30 tabs 04/01/25 (Aldactone) Allergies Allergy/AdvReac Type Severity Reaction Status Date / Time No Known Allergies Allergy Verified 04/01/25 07:21 Review of Systems Review of Systems Systems Reviewed: All systems reviewed, normal except as documented Past Medical History Past Medical History NEUROLOGIC: Positive Neurological Disorders CARDIAC: Positive Cardiac Disorders and Hypertension GASTROINTESTINAL: Positive Gastrointestinal Disorders, Cirrhosis and Obesity HEMATOLOGIC: Positive Blood Disorders and Anemia OTHER HISTORY: Positive Blood Transfusions, Chicken Pox, Measles and Mumps Family History FAMILY HISTORY: Positive Family Cardiac Disorders Social History SMOKING STATUS: Never smoker SUBSTANCE USE: does not use ED Exam General Limitations: Present no limitations General appearance: Present alert and in no apparent distress Head Head exam: Present atraumatic, normocephalic and normal inspection Eye Eye exam: Present normal appearance, PERRL and EOMI ENT ENT exam: Present normal exam, normal oropharynx and mucous membranes moist Neck Neck exam: Present normal inspection, full ROM and trachea midline Chest Chest inspection: Present normal inspection and symmetric chest wall rise Respiratory Respiratory exam: Present normal lung sounds bilaterally Cardiovascular Cardiovascular exam: Present regular rate, normal rhythm and normal heart sounds Abdominal Exam Abdominal exam: Present soft, distention (with fluid wave ) and normal bowel sounds Extremities Exam Extremities exam: Present normal inspection and full ROM Back Exam Back exam: Present normal inspection and full ROM Neurological Exam Neurological exam: Present alert, oriented X3 and CN II-XII intact Psychiatric Psychiatric exam: Present normal affect and normal mood Skin Skin exam: Present warm, dry, intact and normal color Course Quality Measures none Orders Category Date Time Status EKG (ED ONLY) *Do not use* NOW Care 04/01/25 09:40 Completed CXR2 [XR chest 2V] Stat Exams 04/01/25 09:40 Completed EKG (ED Only) Stat Exams 04/01/25 09:40 Draft US paracentesis abd w/image Stat Exams 04/01/25 08:16 Completed BNP [B-Type Natriuretic Peptide] Stat Lab 04/01/25 08:30 Completed CBC Stat Lab 04/01/25 08:30 Completed CMP [Comprehensive Metabolic Panel] Stat Lab 04/01/25 08:30 Completed Lipase Stat Lab 04/01/25 08:30 Completed PT [Prothrombin Time with INR] Stat Lab 04/01/25 08:30 Completed PTT [Partial Thromboplastin Time] Stat Lab 04/01/25 08:30 Completed Sed Rate (ESR) Stat Lab 04/01/25 08:30 Completed Troponin I Stat Lab 04/01/25 08:30 Completed Type and Screen Stat Lab 04/01/25 08:30 Completed Albumin Human 25% Ivpb [Albuminar-25 Ivpb] Med 04/01/25 12:48 Active 25 gm in 100 ml IV QDAY HYDROmorphone INJ [Dilaudid Inj] Med 04/01/25 09:34 Discontinued 1 mg IVP Q4H PRN HYDROmorphone INJ [Dilaudid Inj] Med 04/01/25 09:34 Discontinued 2 mg IVP X1 ONE Lidocaine 1% Pf 30 ml [Xylocaine 1% Pf 30 ml] Med 04/01/25 09:45 Discontinued 30 ml .ROUTE .STK-MED ONE Vital Signs Vital signs: Vital Signs Temperature 98.1 F 04/01/25 07:47 Pulse Rate 84 04/01/25 07:47 Respiratory Rate 20 04/01/25 07:47 Blood Pressure 135/80 H 04/01/25 07:47 Pulse Oximetry (%) 100 04/01/25 07:47 Oxygen Delivery Method Room Air 04/01/25 07:47 Pulse ox is 100% on room air which is adequate. Recheck / Abnormal Lab / Rx MDM Narrative MDM Narrative:: Kimberlee Arora am scribing for and in the presence of Dr. Reese. Patient data External records reviewed:: [facility] previous records (I reviewed yesterday ED visit on 03/31/2025) Clinical information provided by:: patient Social determinants that could affect healthcare access:: none Patient has the following chronic illnesses:: liver cirrhosis with ascites secondary to chronic alcohol use disorder and anemia How is presenting disease/condition affected by chronic disease/condition?: exacerbated by Evaluation data The following diagnostics were reviewed and interpreted by me:: lab results and radiology exam(s) Lab and/or radiology exams considered but not ordered:: None Interpretation Summary: Ordering Physician: Gee Carl Date of Service: 04/01/25 Procedure(s): US paracentesis abd w/image Accession Number(s): [id number] cc: Gee Carl; Ace Justice MD; Israel Eason MD~ Examination: Ultrasound-guided paracentesis Abdominal sonogram limited Date and time of exam: April 01, 2025 0954 hours INDICATIONS: Cirrhosis increasing abdominal distention this week Informed consent provided. A timeout was completed verifying correct patient, procedure, site, positioning, and special adequate movement if applicable. Technique: Multiple sonographic images of the abdomen have been obtained. Appropriate area for paracentesis was marked. Local anesthesia is obtained with 1% lidocaine. Yueh catheter is successfully introduced. Findings: Abdominal sonographic images demonstrate sufficient ascitic fluid for paracentesis. After placing the Yueh catheter, 10762 cc of fluid were successfully removed. During and after completion of the procedure the patient appear in satisfactory and stable condition with no complications observed. Estimated blood loss 0 cc Impression: Abdominal ascites Successful ultrasound-guided paracentesis as described above Dictated By: Ace Justice MD Signed By: <Electronically signed by Ace Justice MD in OV> 04/01/25 1138 Medications / Prescriptions Medications or Prescriptions considered but not ordered:: None Medication administrations:: Medication Administration History Albumin Human (Albuminar-25 Ivpb) 25 gm in 100 mls @ 300 mls/hr IV QDAY PHYLLIS Stop: 04/04/25 12:47 Last Admin: 04/01/25 13:31 Dose: 300 mls/hr Documented By: VG Discontinued Medications Hydromorphone HCl (Hydromorphone Inj 2 Mg/Ml Vial) 1 mg IVP Q4H PRN PRN Reason: PAIN SCALE 4-10(Mod-Sev Stop: 04/06/25 09:33 Hydromorphone HCl (Hydromorphone Inj 2 Mg/Ml Vial) 2 mg IVP X1 ONE Stop: 04/01/25 09:35 Last Admin: 04/01/25 11:54 Dose: Not Given Documented By: TM Non-Admin Reason: Cancelled by Provider Lidocaine HCl (Lidocaine Inj Pf 1% 30 Ml Vial) Confirm Administered Dose 30 ml .ROUTE .STK-MED ONE Stop: 04/01/25 09:46 Last Admin: 04/01/25 11:54 Dose: Not Given Documented By: TM Non-Admin Reason: Override Medication See above Consultations Consultation(s) initiated? (list below): No Diagnosis Recheck Differential Diagnosis: other (anemia, ascites, liver cirrhosis, abdominal pain) Most likely diagnosis given after review of the tests above:: Ascites due to cirrhosis Chronic hypotension Hernia Alcoholic cirrhosis of liver Admission Indicated Admission indicated?: not indicated Admission Request Was there a request for admission?: No Disposition Plan Disposition Plan: Discharge Discharge Attestation Discharge Attestation: The patient and all family members were given an opportunity to ask questions and understood the discharge instructions. Discharge instructions specifically effects, indications for sooner follow up or return to the emergency department, and the expected course of current diagnosis. Patient condition: Stable Discharge Plan Plan Patient Disposition: HOME (Self Care) Patient condition on transfer: Stable Prescriptions/Referrals Prescriptions/Med Rec: New furosemide [Lasix] 40 mg tablet 40 mg PO QDAY Qty: 30 0RF spironolactone [Aldactone] 100 mg tablet 100 mg PO QDAY Qty: 30 0RF No Action spironolactone 25 mg tablet 25 mg PO QDAY Qty: 30 2RF propranolol 10 mg tablet 10 mg 3XD Patient Comments: TAKE 1 TABLET BY MOUTH THREE TIMES DAILY furosemide 80 mg tablet 80 mg PO 1XD Patient Comments: TAKE 1 TABLET BY MOUTH ONCE DAILY Referrals: Israel Salinas MD [Primary Care Provider] - In 1 week Problem List Clinical Impression: Ascites due to alcoholic cirrhosis, Chronic hypotension, Hernia, Alcoholic cirrhosis of liver Clinical Impression: (Ruled Out): Rhabdomyolysis Patient/Caregiver Discharge Instructions Education Materials: Paracentesis Print Language: Belizean Stand Alone Forms: Vanessa Award Info., Patient Portal Info Letter
--- NOTE | 2025-04-01 09:40 | EKG_ITS ---
[facility] Test Date: 2025-04-01 Pat Name: CONNOR JAIME Department: Room: - Gender: Male Specialty Development Consultant: : 1970 Requested By: Abdulaziz Rey Order Number: [id number] Reading MD: Abdulaziz Rey Measurements Intervals [place] Rate: 69 P: 17 NM: 194 QRS: 9 QRSD: 103 T: 17 QT: 407 QTc: 438 Interpretive Statements SINUS RHYTHM Compared to ECG 08/07/2024 05:49:26 Sinus tachycardia no longer present /store/S0/[id number].pdf
--- NOTE | 2025-04-01 09:40 | XR_ITS ---
Examination: PA lateral chest 2 views TECHNIQUE: Upright PA lateral chest 2 views Date and time: April 01, 2025 1114 hours Comparison August 07, 2024 INDICATIONS: Post thoracentesis FINDINGS: Atelectasis in the lower lung zones No pneumothorax Normal heart size Blunting both costophrenic angles IMPRESSION: Bilateral subsegmental atelectasis in
[2025-04-01 10:25] LABS: Lipase 96 U/L (12-53); Troponin I < 0.002 ng/mL (0.0-0.045)
[2025-04-01 11:08] LABS: B-Type Natriuretic Peptide 28 pg/mL (0-100)
[2025-04-01 11:09] LABS: Sed Rate (ESR) 65 mm/hr (0-20)
[2025-04-01 12:31] VITALS: BP 120/75; PULSE 87; RESP 19; TEMP 36.8; O2SAT 95
[2025-04-01] MEDS: ALBUMIN HUMAN 25% IVPB 25 GM/100 ML BTL IV (13:31)
[2025-04-01 14:00] VITALS: BP 109/77; PULSE 81; RESP 19; TEMP 36.7; O2SAT 100
== END 2025-04-01 14:41 | disposition home or self-care (01) ==
PROVIDERS: Nurse Practitioner Family; Emergency Provider Emergency Medicine; PCP Internal Medicine
DX: K70.31 Alcoholic cirrhosis of liver with ascites (principal); I95.89 Other hypotension; K46.9 Unspecified abdominal hernia without obstruction or gangrene
CPT/HCPCS: 49083; 36415; 71046; 80053; 83690; 83880; 84484; 85025; 85610; 85652; 85730; 86850; 86900; 86901; 93005; 96365; 99284; C1729; P9047

== ENCOUNTER 2025-04-20 13:04 | Inpatient (IN) | payer BC, SELFPAY ==
[2025-04-20] VITALS (8 sets, daily range): BP systolic 97–131; BP diastolic 53–73; PULSE 80–110; RESP 16–26; TEMP 36.9–38; O2SAT 98–100; BMI 37.9; BMI 34.3
--- NOTE | 2025-04-20 13:18 | EKG_ITS ---
[facility] Test Date: 2025-04-20 Pat Name: CONNOR JIAME Department: Room: - Gender: Male Technical Support Director: : 1970 Requested By: Jaylen Foster (JANA) Order Number: [id number] Reading MD: Jaylen oFster (THREAD CUTTER TENDER) Measurements Intervals [place] Rate: 121 P: 48 TN: 175 QRS: -18 QRSD: 87 T: 29 QT: 311 QTc: 442 Interpretive Statements SINUS TACHYCARDIA LOW QRS VOLTAGE IN PRECORDIAL LEADS [QRS DEFLECTION < 1.0 mV IN CHEST LEADS] POSSIBLE ANTERIOR MYOCARDIAL INFARCTION , PROBABLY OLD [30 ms Q WAVE IN V3/V4, OR R < 0.2 mV IN V4] ABNORMAL RHYTHM ECG Compared to ECG 04/01/2025 12:27:25 Low QRS voltage now present Myocardial infarct finding now present Sinus rhythm no longer present /store/S0/[id number].pdf
--- NOTE | 2025-04-20 13:19 | PD.EDRME ---
Rapid Medical Screening Exam [facility] Arrival date/time: 04/20/25 13:04 54 old male with history of cirrhosis and anemia presents for concern low hemoglobin generalized weakness and dizziness Chief Complaint: Weakness
[2025-04-20 13:44] LABS: Basophils # (Auto) 0.0 Thou/mm3 (0.0-0.2); Basophils % (Auto) 0 % (0-2.5); Eosinophils # (Auto) 0.0 Thou/mm3 (0.0-0.5); Eosinophils % (Auto) 0 % (0-10); Hematocrit 25.2 % (41.0-53.0); Hemoglobin 8.6 g/dL (13.5-16.0); Immature Granulocytes Auto 0.12 Thou/mm3 (0.00-0.00); Lymphocytes # (Auto) 0.4 Thou/mm3 (1.0-4.8); Lymphocytes % (Auto) 2 % (10-50); Mean Corpuscular HGB Conc 34.1 g/dl (31.0-37.0); Mean Corpuscular Hemoglobin 32.2 pg (25.0-35.0); Mean Corpuscular Volume 94 fL (80-100); Monocytes # (Auto) 0.7 Thou/mm3 (0.0-0.8); Monocytes % (Auto) 4 % (0-12); Neutrophils # (Auto) 16.4 Thou/mm3 (1.8-7.7); Neutrophils % (Auto) 93 % (37-80); Nucleated Red Blood Cell # 0.00 Thou/mm3 (0.00-0.00); Nucleated Red Blood Cell % 0 /100 WBC (0); Platelet Count 163 Thou/mm3 (140-440); RDW Standard Deviation 56.0 fL (35.1-43.9); Red Blood Count 2.67 Miln/mm3 (4.50-5.90); White Blood Count 17.6 Thou/mm3 (3.8-10.6)
[2025-04-20 14:01] LABS: Alanine Aminotransferase 25 U/L (10-49); Albumin, Serum 2.6 gm/dL (3.5-5.0); Albumin/Globulin Ratio 0.6 (1.2-2.2); Alkaline Phosphatase 203 U/L (46-116); Anion Gap 11 (7-16); Aspartate Amino Transferase 44 U/L (0-34); BUN/Creatinine Ratio 18 Ratio (12-20); Bilirubin,Total 1.4 mg/dL (0.3-1.2); Blood Urea Nitrogen 50 mg/dL (9-23); Calcium 7.6 mg/dL (8.3-10.6); Calcium (Corrected) 8.7 mg/dL (8.5-10.1); Carbon Dioxide 16.3 mMol/L (20.0-31.0); Chloride 107 mMol/L (98-107); Creatinine (Component) 2.8 mg/dL (0.6-1.3); Globulin 4.6 gm/dL (2.3-3.5); Glucose 112 mg/dL (74-106); Magnesium 1.2 mg/dL (1.6-2.6); Osmolality,Calculated 282 (275-295); Potassium 5.3 mMol/L (3.4-5.1); Sodium 134 mMol/L (136-145); Total Protein 7.2 gm/dL (5.7-8.2); Troponin I < 0.020 ng/mL (0.0-0.045); eGFR 26 See Note
[2025-04-20 14:12] LABS: B-Type Natriuretic Peptide 105 pg/mL (0-100)
[2025-04-20 14:14] LABS: Collection Type, Urine Clean Catch
[2025-04-20 14:19] LABS: Bilirubin,Urine Negative (Negative); Blood,Urine 2+ (Negative); Clarity,Urine Clear (Clear/Hazy); Color,Urine Yellow (Lt Yel-Yel); Glucose, Urine Negative (Negative); Hyaline Casts,Urine < 1 /hpf (0-1); Ketones,Urine Negative (Negative); Leukocyte Esterase,Urine Negative (Negative); Nitrite,Urine Negative (Negative); PH,Urine 5.5 (5.0-7.0); Protein,Urine Trace (Neg - Trace); RBC,Urine 19 /hpf (0-3); Specific Gravity,Urine 1.015 (1.001-1.035); Squamous Epithelial Cell,Urine 2 /hpf (0-5); Urobilinogen,Urine Negative mg/dL (0.0-1.0); WBC,Urine 2 /hpf (0-5)
[2025-04-20 14:26] LABS: Amphetamine/Methamp Scrn,U Negative (Negative); Barbiturate Screen,Urine Negative (Negative); Benzodiazepines Screen,Urine Negative (Negative); Benzoylecgonine Screen, Ur Negative (Negative); Fentanyl Screen,Urine Negative (Negative); Opiate Screen,Urine Negative (Negative); THC Screen,Urine Negative (Negative)
--- NOTE | 2025-04-20 15:38 | EDNOTE_ITS ---
ED Weakness RME/HPI General Chief complaint: Weakness Stated complaint: WEAKNESS W/ LOW BP PRIMARY SENT Time Seen by Provider: 04/20/25 14:23 Arrival date/time: 04/20/25 13:04 RME / HPI RME / HPI Narrative: 04/20/25 13:04 54 old male with history of cirrhosis and anemia presents for concern low hemoglobin generalized weakness and dizziness DR. NOBLE MAIN ED EVALUATION: 54 year old male with history of liver cirrhosis with ascites secondary to chronic alcohol use disorder and anemia presents to the ED for evaluation of low hemoglobin levels today. Patient states he had labs performed in [place] today an d called by PCP stating his hemoglobin was 6.3. Patient reports feeling globally weak accompanied by a cough and abdominal distention. Denies fevers, chills, chest pain, vomiting, diarrhea, or urinary symptoms. Patient states he undergoes paracentesis every 2 months. Related Data Home Medications ?Medication ?Instructions ?Recorded ?Confirmed furosemide 80 mg tablet 80 mg PO 1XD 08/07/24 Held on 08/12/24. Instructions: Resume on 08/23/24. Follow-up with PCP before resuming furosemide propranolol 10 mg tablet 10 mg 3XD 08/07/24 08/07/24 Previous Rx's ?Medication ?Instructions ?Recorded spironolactone 25 mg tablet 25 mg PO QDAY #30 tabs Held on 08/12/24. Instructions: Resume on 08/23/24. Hold spironolactone until you follow-up with PCP furosemide 40 mg tablet (Lasix) 40 mg PO QDAY #30 tabs 04/01/25 spironolactone 100 mg tablet 100 mg PO QDAY #30 tabs 0 04/01/25 (Aldactone) Allergies Allergy/AdvReac Type Severity Reaction Status Date / Time No Known Allergies Allergy Verified 04/20/25 13:08 Review of Systems Review of Systems Systems Reviewed: All systems reviewed, normal except as documented Past Medical History Past Medical History NEUROLOGIC: Positive Neurological Disorders CARDIAC: Positive Cardiac Disorders and Hypertension (no meds) GASTROINTESTINAL: Positive Gastrointestinal Disorders, Cirrhosis (acities), Gastrointestinal Bleed and Obesity HEMATOLOGIC: Positive Blood Disorders and Anemia OTHER HISTORY: Positive Blood Transfusions, Chicken Pox, Measles and Mumps Family History FAMILY HISTORY: Positive Family Cardiac Disorders Social History SMOKING STATUS: Never smoker SUBSTANCE USE: does not use ED Exam Narrative Physical exam: Generally patient is alert and chronically ill appearing but in no obvious distress. Heart is regular rate and rhythm. Lungs are clear to auscultation equal bilaterally. Abdomen is distended with reducible large periumbilical hernia. There is a positive fluid wave. Minimal tenderness. Neurologic exam no focal motor or sensory deficits cranial nerves II through XII grossly intact skin is cool pale and dry Course Quality Measures none Orders Category Date Time Status EKG (ED ONLY) *Do not use* NOW Care 04/20/25 13:18 Completed EKG (ED Only) Stat Exams 04/20/25 13:18 Draft XR chest 1V portable Stat Exams 04/20/25 15:37 Completed B-Type Natriuretic Peptide Stat Lab 04/20/25 13:31 Completed Body Fld Cult w Pooja & Gram St Stat Lab 04/20/25 16:15 Received CBC Stat Lab 04/20/25 13:31 Completed Comprehensive Metabolic Panel Stat Lab 04/20/25 13:31 Completed Drug Screen,Urine Stat Lab 04/20/25 14:02 Completed Magnesium Stat Lab 04/20/25 13:31 Completed Partial Thromboplastin Time Stat Lab 04/20/25 13:31 Received Peritoneal Cell Cnt/Diff Stat Lab 04/20/25 16:15 Completed Prothrombin Time with INR Stat Lab 04/20/25 13:31 Received Troponin I Stat Lab 04/20/25 13:31 Completed Type and Screen Stat Lab 04/20/25 13:31 Completed Urinalysis Stat Lab 04/20/25 14:02 Completed cefTRIAXone/D5w 1gm IV premix [Rocephin/D5w 1gm IV Med 04/20/25 16:32 Discontinued premix] 1 gm in 50 ml IV X1 Vital Signs Vital signs: Vital Signs Temperature 99.5 F 04/20/25 13:19 Pulse Rate 110 H 04/20/25 13:19 Respiratory Rate 20 04/20/25 13:19 Blood Pressure 117/69 04/20/25 13:19 Pulse Oximetry (%) 98 04/20/25 13:19 Oxygen Delivery Method Room Air 04/20/25 13:19 Pulse ox is 98% on room air which is adequate. Weakness MDM Narrative MDM Narrative:: IKimberlee am scribing for and in the presence of Dr. Noble. Patient has a temperature 100.4 degrees. Chest x-ray is clear. Urinalysis shows no evidence of infection. Skin shows no evidence of cellulitis. Procedure note: After consent was obtained and risk versus benefits were explained to the patient as well as alternative treatments, a right lower quadrant ultrasound assisted paracentesis was carried out using the Salinger technique and safety centesis tray. 1 L of cloudy yellow fluid was removed from the peritoneal cavity. The white blood cell count in this fluid was almost 11,000 with 85% PMNs. This would be significant for spontaneous bacterial peritonitis. Patient did receive Rocephin 1 g IV. Case was discussed with the hospitalist who will admit the patient to the hospital for further treatment and evaluation. Patient data External records reviewed:: [facility] previous records (I reviewed ED visit on 04/01/2025 ) Clinical information provided by:: patient Social determinants that could affect healthcare access:: none Patient has the following chronic illnesses:: liver cirrhosis with ascites secondary to chronic alcohol use disorder, anemia How is presenting disease/condition affected by chronic disease/condition?: exacerbated by Evaluation data The following diagnostics were reviewed and interpreted by me:: lab results, radiology exam(s) and EKG tracing(s) Lab and/or radiology exams considered but not ordered:: None Interpretation Summary: Ordering Physician: Heri Noble DO Date of Service: 04/20/25 Procedure(s): XR chest 1V portable Accession Number(s): [id number] cc: Ace Justice MD; NO PRIMARY/FAMILY,PHYSICIAN; Heri Noble DO~ Examination: AP chest single view TECHNIQUE: AP portable upright chest single view Date and time: April 20, 2025 1621 hours Comparison April 01, 2025 INDICATIONS: Postthoracentesis FINDINGS: Atelectasis in the lower lung zones No pneumothoraces Normal heart size IMPRESSION: Negative for pneumothorax Dictated By: Ace Justice MD Signed By: <Electronically signed by Ace Justice MD in OV> 04/20/25 2515 Medications / Prescriptions Medications or Prescriptions considered but not ordered:: None Medication administrations:: Medication Administration History Discontinued Medications Ceftriaxone Sodium/Dextrose (Rocephin/D5w 1gm Iv Premix) 1 gm in 50 mls @ 100 mls/hr IV X1 ONE Stop: 04/20/25 17:01 Last Infusion: 04/20/25 17:32 Dose: Infused Documented By: Admin: 04/20/25 16:46 Dose: 100 mls/hr Documented By: TRE see above Consultations Consultation(s) initiated? (list below): Yes Diagnosis Weakness Differential Diagnosis: acute myocardial infarction, anemia, sepsis, dehydration and other (SBP, pneumonia, viral illness ) Most likely diagnosis given after review of the tests above:: None Admission Indicated Admission indicated?: indicated Admission Request Was there a request for admission?: Yes Admission Attestation Admission request attestation: Discussed case with [] from Hospitalist service regarding admission. Discussed patients ED course, exam findings, labs, and radiology results. The Hospitalist [agrees,declines] to accept the patient for admission. Disposition Plan Disposition Plan: Admit Discharge Plan Plan Patient Disposition: Admit Acute Care w/in Hospital Prescriptions/Referrals Prescriptions/Med Rec: No Action furosemide [Lasix] 40 mg tablet 40 mg PO QDAY Qty: 30 0RF spironolactone [Aldactone] 100 mg tablet 100 mg PO QDAY Qty: 30 0RF spironolactone 25 mg tablet 25 mg PO QDAY Qty: 30 2RF propranolol 10 mg tablet 10 mg 3XD Patient Comments: TAKE 1 TABLET BY MOUTH THREE TIMES DAILY furosemide 80 mg tablet 80 mg PO 1XD Patient Comments: TAKE 1 TABLET BY MOUTH ONCE DAILY Referrals: No Primary/Family,Physician [Primary Care Provider] - In 1 week Problem List Clinical Impression: SBP (spontaneous bacterial peritonitis) Patient/Caregiver Discharge Instructions Print Language: Slovenian Stand Alone Forms: Vanessa Award Info., Patient Portal Info Letter
--- NOTE | 2025-04-20 15:58 | PC.NURSE ---
pt came in due to possible low h&h sent by pmd. pt may need blood transfusion. pt also has hx of liver cirrhosis and gets paracentesis done regular. pt also noted to have petechiae rash and cough. mask applied and pt placed on monitor. md at bedside and wants to do procedure so pt signed consent.
--- NOTE | 2025-04-20 16:36 | PC.NURSE ---
para fluid sent to lab
[2025-04-20] MEDS: cefTRIAXone/D5w 1gm IV premix 1 GM/50 ML BAG IV ×2 (16:46→18:45)
[2025-04-20 17:08] LABS: Peritoneal Fluid WBC 10884 /cmm
[2025-04-20 17:31] LABS: Peritoneal Fluid Appearance Cloudy; Peritoneal Fluid Color Yellow; Peritoneal Fluid Mononuclear 15 %; Peritoneal Fluid Polynuclear 85 %; RBC,Peritoneal Fluid 2000 /cmm
[2025-04-20 17:44] LABS: INR 1.4 (0.9-1.3); Partial Thromboplastin Time 33.3 Seconds (22.0-36.0); Prothrombin Time 15.1 Seconds (9.0-12.2)
[2025-04-20] MEDS: ALBUTEROL RT 2.5 MG/3 ML NEBU INH (18:16)
--- NOTE | 2025-04-20 18:19 | ESHP_ITS ---
<Statement entered by Marlo Bolivar MD - 04/21/25 14:28> I discussed and supervised with the internal combustion engineer physician who took care of this patient. I personally saw and examined the patient. I agree with most of the assessment and plan. Disclaimer: Despite multiple revisions, due to the dictation software being used, the document bellow may not be free of grammatical errors including phonetic/typographic errors. However, this does not deter from our commitment to providing health care in the patient's best interest in mind. Plan of care discussed with attending Physician Dr. Martin Bolivar MD PGY-3 Documentation for date of: 04/20/25 HPI History of Present Illness Chief complaint: Weakness History of present illness: Mr. 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 Pt had labs performed recently and was called by his PCP stating he has low hemoglobin, which prompt him to come to the ER today. Pt reports generalized weakness and midline abdominal pain, but denies syncope, fever, nausea, vomiting, melema, hematemesis, or any urinary symptoms. Pt states he usually comes to see Dr. Campoverde every 2 month for paracentesis, and had gotten a few blood transfusion in the past for his anemia. He reports regular bowel movement. His last bowel movement was 2 hours ago. He denies diarrhea or bloody stool. On exam, pt was noted to have distended abdomen and prominent abdominal hernia with intact skin. A new cluster of small blood spots was also noted on pt's right lower leg, which he states it appeared just a week ago. ED Course In the ED, initial labs showed WBC 17.6, Hgb 8.6, Plt 163, PT 15.1, PTT 33.3, INR 1.4, Na 134, K 5.3, Cl 107, Cage Maker 2.8, and BUN 50, Ca 7.6, Mg 1.2, Alk Phos 203, BNP 105, Ammonia 13 and albumin 2.6. Neg Trop. EKG showed Sinus Tach with a rate of 121. CXR shows atelectasis in lower lung zones, otherwise unremarkable. Negative UDS. UA shows 2+ blood with 19 RBC. Peritoneal fluid shows 42582 WBC and 2000 RBC. Ceftriaxone 1g given. ROS * Constitutional: NAD, a/o x 3, denies fever/chills. * GI: Denies nausea, vomiting. Abdominal hernia with normal bowel movement today. * CV: Denies chest pain or palpitations. * Resp: Denies SOB. * : Denies dysuria, CVA tenderness, suprapubic tenderness. * Neuro: Denies dizziness, no focal deficits. * Skin: Cluster of small blood spots at right lower leg that appeared a week ago. Abdominal straie with hyperpigmentation at lower abdomen. No draining ascitic fluid noted from ventral hernia. Past Medical History * Cirrhosis secondary to alcoholism * Abdominal hernia * Anemia * Esophageal varices * Upper GI Bleed Social History * Lives at home, independent baseline. * Denies tobacco or illicit drug use. History of alcohol abuse but stopped Surgical History * Banding for esophageal varicies (Aug, 2024) Allergies * NKDA Home Meds * Spironlactone 100mg once daily * Furosemide 40mg once daily Review of Systems Review of Systems Systems Reviewed: All systems reviewed, normal except as documented Past Medical History Past Medical History NEUROLOGIC: Positive Neurological Disorders CARDIAC: Positive Cardiac Disorders and Hypertension (no meds) GASTROINTESTINAL: Positive Gastrointestinal Disorders, Cirrhosis (acities), Gastrointestinal Bleed and Obesity HEMATOLOGIC: Positive Blood Disorders and Anemia OTHER HISTORY: Positive Blood Transfusions, Chicken Pox, Measles and Mumps Family History FAMILY HISTORY: Positive Family Cardiac Disorders Social History SMOKING STATUS: Never smoker SUBSTANCE USE: does not use Exam Vital Signs Temp Pulse Resp BP Pulse Ox O2 Del Method 100.4 F 82 26 H 122/70 100 Room Air 04/20/25 15:32 04/20/25 18:16 04/20/25 15:23 04/20/25 15:23 04/20/25 15:23 04/20/25 15:23 Narrative Exam General: Well appearing, well nourished, in no distress. Oriented x 3, normal mood and affect . Ambulating without difficulty. Skin: Jaundice. Hyperpigmentation to lower abdominal region. Eyes: Sclera icterus. Neck: Supple, without lesions, bruits, or adenopathy, thyroid non-enlarged and non-tender Heart: No cardiomegaly or thrills; regular rate and rhythm, no murmur or gallop Lungs: Clear to auscultation and percussion. No rales, wheeze, or rhonchi Abdomen: Bowel sounds normal, mild midline tenderness with palpation, large anterior abdominal hernia with discoloration, no drainage of ascitic fluid Extremities: Cluster of small blood spots to right lower leg. Results: Labs 04/22/25 00:59 04/21/25 04:29 Labs: Short CBC 04/20/25 Range/Units 13:31 WBC 17.6 H (3.8-10.6) Thou/mm3 Hgb 8.6 L (13.5-16.0) g/dL Hct 25.2 L (41.0-53.0) % Plt Count 163 D (140-440) Thou/mm3 BMP 04/20/25 13:31 Sodium 134 L Potassium 5.3 H Chloride 107 Carbon Dioxide 16.3 L BUN 50 H Creatinine 2.8 H Glucose 112 H Calcium 7.6 L Cardiac Enzymes 04/20/25 Range/Units 13:31 Troponin I < 0.020 (0.0-0.045) ng/mL Liver Function 04/20/25 Range/Units 13:31 Total Bilirubin 1.4 H (0.3-1.2) mg/dL AST 44 H (0-34) U/L ALT 25 (10-49) U/L Alkaline Phosphatase 203 H (46-116) U/L Albumin 2.6 L (3.5-5.0) gm/dL Urine 04/20/25 Range/Units 14:02 Urine Color Yellow (Lt Yel-Yel) Urine Clarity Clear (Clear/Hazy) Urine pH 5.5 (5.0-7.0) Ur Specific [place] 1.015 (1.001-1.035) Urine Protein Trace (Neg - Trace) Urine Glucose (UA) Negative (Negative) Quality Measures Quality Measures VTE prophylaxis Medications Home Medications and Allergies Home Medications ?Medication ?Instructions ?Recorded ?Confirmed ?Type furosemide 80 mg tablet 80 mg PO 1XD 08/07/24 History Held on 08/12/24. Instructions: Resume on 08/23/24. Follow-up with PCP before resuming furosemide propranolol 10 mg tablet 10 mg PO 3XD 08/07/24 History Allergies Allergy/AdvReac Type Severity Reaction Status Date / Time No Known Allergies Allergy Verified 04/20/25 13:08 Visit Medications Acetaminophen (Acetaminophen Supp 650 Mg Supp) 650 mg TX Q6HR PRN PRN Reason: Fever > 100.4 or pain 1-3 Stop: 05/20/25 17:53 Docusate Sodium (Docusate Sod 100 Mg Capsule) 100 mg PO QDAY PRN; Protocol PRN Reason: CONSTIPATION Stop: 05/20/25 17:53 Furosemide (Furosemide 40 Mg Tablet) 40 mg PO QDAY PHYLLIS Stop: 05/21/25 08:59 Albumin Human (Albuminar-25 Ivpb) 25 gm in 100 mls @ 100 mls/hr IV BID PHYLLIS Stop: 04/23/25 20:59 Ceftriaxone Sodium 2 gm/ (Sodium Chloride) 50 mls @ 100 mls/hr IV QDAY PHYLLIS Stop: 04/27/25 08:59 Ceftriaxone Sodium/Dextrose (Rocephin/D5w 1gm Iv Premix) 1 gm in 50 mls @ 100 mls/hr IV X1 ONE; Protocol Stop: 04/20/25 18:44 Lactulose (Lactulose Syrup 20 Gm/30 Ml Udc) 10 gm PO TID PRN; Protocol PRN Reason: CONSTIPATION Stop: 05/20/25 21:59 Ondansetron HCl (Ondansetron Inj 2 Mg/Ml Inj 2 Ml) 4 mg IVP Q6H PRN; Protocol PRN Reason: NAUSEA OR VOMITING Stop: 05/20/25 17:53 Oxycodone/Acetaminophen (Oxycodone/Apap 5/325 Tablet) 1 tab PO Q6H PRN PRN Reason: PAIN SCALE 4-10(Mod-Sev Stop: 04/25/25 17:53 Pantoprazole Sodium (Pantoprazole Inj 40 Mg Vial) 40 mg IVP QDAY PHYLLIS Stop: 05/21/25 08:59 Sennosides (Senna Tablet) 1 tab PO QDAY PRN; Protocol PRN Reason: constipation Stop: 05/20/25 17:53 Discontinued Medications Albuterol (Albuterol Rt 2.5 Mg/3 Ml Nebu) 2.5 mg INH X1 ONE Stop: 04/20/25 18:00 Last Admin: 04/20/25 18:16 Dose: 2.5 mg Dextrose (Dextrose 50%-Water Inj 50 Ml Syringe) 50 ml IV X1 ONE Stop: 04/20/25 18:00 Ceftriaxone Sodium/Dextrose (Rocephin/D5w 1gm Iv Premix) 1 gm in 50 mls @ 100 mls/hr IV X1 ONE Stop: 04/20/25 17:01 Last Infusion: 04/20/25 17:32 Dose: Infused Insulin Human Regular (Insulin Hum Regular 1 Unit/0.01 Ml (Per Unit)) 10 unit IV X1 ONE Stop: 04/20/25 18:00 Sodium Polystyrene Sulfonate (Sod Polystyrene Sulfon Susp 15 Gm/60 Ml Btl) 30 gm PO X1 ONE Stop: 04/20/25 18:00 Assessment & Plan Plan 54M with history of cirrhosis with ascites, chronic anemia, esophageal varices with band ligation, and ventral hernia presented for generalized weakness. In ED, [place] 14602 WBC and 2000 RBC. CXR shows lower lobes atelectasis, otherwise unremarkable. He was admitted for management of SBP with IV antibiotics. #SBP -hx of paracentesis History of cirrhosis secondary to alcohol use. Peritoneal fluid shows 00983 WBC and 2000 RBC. IGOR-SOFA score of 6. (>=7 suggests more severe illness) Plan: - Start albumin infusion - Start Ceftriaxone 2g IV every 24H - Pending blood cultures - Pending peritoneal fluid culture #Acites -in setting of liver cirrhosis Plan : - Start furosemide and spironlactone #Hx of Decompensated Liver Cirrhosis MELD Score 23, 19.6% Estimated 3-Month Mortality. Child-Awad Score 9. Child Class B. Abdominal surgery aundrea-operative mortality: 30% Maddrey's Discriminant Point 22.6. Good prognosis - >32 points indicated poor prognosis and pt may benefit from glucocorticoid therapy. Plan: - Consider referral to property maintenance supervisor or liver transplant center for pt with MELD score >=0 - Avoidance of hepatotoxins, codeine, and meperidine - Monitor for coagulopathy, signs of bleeding (INR 1.4, Plt 163k) - Monitor for hepatic encephalopathy (Ammonia 13) - Medication dose adjustment #Anemia of chronic disease -in setting of liver cirrhosis Hgb 8.6, MCV 94. Hx of blood transfusions. Plan: - Daily CBC to monitor Hgb, blood transfusion if below 7 - Order Iron panel and recticulocyte count. - Start vitamin B12 and folate? #Acute kidney injury vs hepatorenal syndrome Cage Maker 2.8, BUN 50. Baseline Cage Maker around 3. Plan: - Start albumin infusion (1g/kg, up to 100g/day) -Avoid nephrtoxic agents -Renaly dose meds -str in/out -F/U daily renal panel #Hyponatremia Na 134. Plan: - Daily CMP - Correct Na if falls below 120, daily correction by no more than 4 to 6 mEq/L Dispo: Admin to MedSurg for IV antibiotics DVT prophylaxis: Heparin GI prophylaxis: Diet: Renal diet Lines: Peripheral IV Code status: Full code Case discussed with my senior resident Dr. Bolivar Case discussed with my attending Dr. Martin Carvalho DO PGY 1 Attending Provider Attestation/Addendum I attest that I was physically present for the evaluation, physical examination, lab and imaging review of the patient with the residents. I discussed the case with the residents and agree with the findings and plans of care as documented above. After examination of the patient and review of the clinical data I feel that this patient needs admission to the hospital for further treatment/evaluation. Haylee Salazar MD
[2025-04-20] MEDS: SOD POLYSTYRENE SULFON SUSP 15 GM/60 ML BTL 30 GM PO (18:45)
[2025-04-20] MEDS: DEXTROSE 50%-WATER INJ 50 ML SYRINGE IV (18:52)
[2025-04-20 18:53] LABS: Ammonia 13 uMol/L (11-32)
[2025-04-20] MEDS: INSULIN HUM REGULAR 1 UNIT/0.01 ML (PER UNIT) 5 UNIT IV (18:53)
[2025-04-20 19:32] LABS: LDH (Lactate Dehydrogenase) 141 U/L (120-246)
[2025-04-20] MEDS: Magnesium Sulfate 4 GM Ivpb 4 GM/50 ML BAG IV (21:24)
[2025-04-20] MEDS: ALBUMIN HUMAN 25% IVPB 25 GM/100 ML BTL IV (22:43)
[2025-04-21] VITALS (15 sets, daily range): BP systolic 106–138; BP diastolic 54–75; PULSE 75–88; RESP 15–20; TEMP 36.2–37; O2SAT 95–98
[2025-04-21 06:09] LABS: Basophils # (Auto) 0.0 Thou/mm3 (0.0-0.2); Basophils % (Auto) 0 % (0-2.5); Eosinophils # (Auto) 0.0 Thou/mm3 (0.0-0.5); Eosinophils % (Auto) 1 % (0-10); Immature Granulocytes Auto 0.04 Thou/mm3 (0.00-0.00); Lymphocytes # (Auto) 0.4 Thou/mm3 (1.0-4.8); Lymphocytes % (Auto) 6 % (10-50); Mean Corpuscular HGB Conc 33.7 g/dl (31.0-37.0); Mean Corpuscular Hemoglobin 32.8 pg (25.0-35.0); Mean Corpuscular Volume 98 fL (80-100); Monocytes # (Auto) 0.8 Thou/mm3 (0.0-0.8); Monocytes % (Auto) 12 % (0-12); Neutrophils # (Auto) 5.5 Thou/mm3 (1.8-7.7); Neutrophils % (Auto) 81 % (37-80); Nucleated Red Blood Cell # 0.00 Thou/mm3 (0.00-0.00); Nucleated Red Blood Cell % 0 /100 WBC (0); Platelet Count 96 Thou/mm3 (140-440); RDW Standard Deviation 58.0 fL (35.1-43.9); Red Blood Count 2.01 Miln/mm3 (4.50-5.90); White Blood Count 6.8 Thou/mm3 (3.8-10.6)
[2025-04-21 06:22] LABS: Hemoglobin 6.6 g/dL (13.5-16.0); INR 1.6 (0.9-1.3); Partial Thromboplastin Time 36.4 Seconds (22.0-36.0); Prothrombin Time 16.5 Seconds (9.0-12.2)
[2025-04-21 06:23] LABS: Hematocrit 19.6 % (41.0-53.0)
[2025-04-21 06:40] LABS: Alanine Aminotransferase 19 U/L (10-49); Albumin, Serum 2.5 gm/dL (3.5-5.0); Albumin/Globulin Ratio 0.6 (1.2-2.2); Alkaline Phosphatase 149 U/L (46-116); Anion Gap 12 (7-16); Aspartate Amino Transferase 28 U/L (0-34); BUN/Creatinine Ratio 18 Ratio (12-20); Bilirubin,Total 1.0 mg/dL (0.3-1.2); Blood Urea Nitrogen 53 mg/dL (9-23); Calcium 7.6 mg/dL (8.3-10.6); Calcium (Corrected) 8.8 mg/dL (8.5-10.1); Carbon Dioxide 17.6 mMol/L (20.0-31.0); Cardiac Risk Estimate 4.8 RATIO (4.0-6.7); Chloride 109 mMol/L (98-107); Cholesterol 76 mg/dL (132-200); Creatinine (Component) 2.9 mg/dL (0.6-1.3); Estimated Creatinine Clearance 32.1 mL/min (>60); Globulin 4.1 gm/dL (2.3-3.5); Glucose 117 mg/dL (74-106); HDL Cholesterol 16 mg/dL (40-60); LDL Cholesterol,Calculated 48 mg/dL (0-130); Magnesium 1.9 mg/dL (1.6-2.6); Osmolality,Calculated 292 (275-295); Phosphorous 4.4 mg/dL (2.4-5.1); Potassium 4.6 mMol/L (3.4-5.1); Sodium 139 mMol/L (136-145); Total Protein 6.6 gm/dL (5.7-8.2); Triglycerides 58 mg/dL (30-150); eGFR 25 See Note
[2025-04-21 07:06] LABS: Iron 21 mcg/dL (65-175); Percent Iron Saturation 9 % (20-55); Total Iron Binding Capacity 217 mcg/dL (250-425); Unsaturated Iron Binding 196 (225-295)
[2025-04-21] MEDS: cefTRIAXone 2 GM in SODIUM CHLORIDE 0.9% (Popper) 50 ML IV (08:35)
[2025-04-21] MEDS: PANTOPRAZOLE 40 MG TABLET PO ×2 (08:35→20:07)
[2025-04-21 09:14] LABS: Immature Reticulocyte Fraction 18.8 % (2.3-13.4); Reticulocyte % (Auto) 2.8 % (0.5-1.5); Reticulocyte Absolute Auto 55.4 Biln/L (25.0-75.0); Reticulocyte Hgb Content 36.0 pg (28.0-35.0)
[2025-04-21] MEDS: ALBUMIN HUMAN 25% IVPB 25 GM/100 ML BTL IV ×4 (09:42→23:49)
--- NOTE | 2025-04-21 09:47 | ESPR_ITS ---
<Statement entered by Marlo Bolivar MD - 04/21/25 18:34> Overnight, patient had a drop in hemoglobin. He was transfused 1 unit of PRBC on post H&H hemoglobin improved to 7.8. Therapeutic paracentesis was performed around 4 L were removed. Will give additional 2 albumin 50 g besides albumin 25 twice daily. Will continue with 2 g Rocephin follow-up on culture results. I discussed and supervised with the leadership intern physician who took care of this patient. I personally saw and examined the patient. I agree with most of the assessment and plan. Disclaimer: Despite multiple revisions, due to the dictation software being used, the document bellow may not be free of grammatical errors including phonetic/typographic errors. However, this does not deter from our commitment to providing health care in the patient's best interest in mind. Plan of care discussed with attending Physician Dr. Tiki Bolivar MD PGY-3 Documentation for date of: 04/21/25 Subjective Subjective Interval history: No overnight events. Evaluated at bedside. Pt is well appearing and has no acute distress. VS stable. Discussed the possibility of blood transfusion with pt due to a drop of Hgb from 8.6 to 6.6. Paracentesis planned for later today. The patient denies chest pain, shortness of breath, or abdominal pain. Exam Vital Signs Temp Pulse Resp BP Pulse Ox O2 Del Method O2 Flow Rate 97.7 F 84 15 112/64 97 Room Air 6 04/21/25 07:46 04/21/25 08:34 04/21/25 07:46 04/21/25 08:34 04/21/25 07:46 04/21/25 04:00 04/20/25 18:17 Narrative Exam General: Well appearing, well nourished, in no distress. Oriented x 3, normal mood and affect . Ambulating without difficulty. Skin: Jaundice. Hyperpigmentation to lower abdominal region. Eyes: Sclera icterus. Neck: Supple, without lesions, bruits, or adenopathy, thyroid non-enlarged and non-tender Heart: No cardiomegaly or thrills; regular rate and rhythm, no murmur or gallop Lungs: Diminished breathe sound at bilateral lower lobes. No rales, wheeze, or rhonchi Abdomen: Bowel sounds normal, large anterior abdominal hernia with discoloration, no drainage of ascitic fluid Extremities: Cluster of small blood spots to right lower leg. Objective Labs 04/22/25 07:47 04/21/25 04:29 Labs: Laboratory Results - last 24 hr 04/20/25 04/20/25 04/20/25 13:31 14:02 16:15 WBC 17.6 H RBC 2.67 L Hgb 8.6 L Hct 25.2 L MCV 94 MCH 32.2 MCHC 34.1 RDW Std Deviation 56.0 H Plt Count 163 D Neut % (Auto) 93 H Lymph % (Auto) 2 L Williamson % (Auto) 4 Eos % (Auto) 0 Baso % (Auto) 0 Neut # (Auto) 16.4 H Lymph # (Auto) 0.4 L Williamson # (Auto) 0.7 Eos # (Auto) 0.0 Baso # (Auto) 0.0 Immature Gran # (Auto) 0.12 H Absolute Nucleated RBC 0.00 Immature Gran % 1 H Nucleated RBC % 0 Retic Count (auto) Absolute Retic Immature Retic Fraction Retic Hgb Content CHr PT 15.1 H INR 1.4 H APTT 33.3 Sodium 134 L Potassium 5.3 H Chloride 107 Carbon Dioxide 16.3 L Anion Gap 11 BUN 50 H Creatinine 2.8 H Estim Creat Clear Calc Not Performed. eGFR 26 L BUN/Creatinine Ratio 18 Glucose 112 H Calculated Osmolality 282 Calcium 7.6 L Corrected Calcium 8.7 Phosphorus Magnesium 1.2 L Iron TIBC Iron Saturation Unsat Iron Binding Total Bilirubin 1.4 H AST 44 H ALT 25 Alkaline Phosphatase 203 H Ammonia Lactate Dehydrogenase Troponin I < 0.020 B-Natriuretic Peptide 105 H Total Protein 7.2 Albumin 2.6 L Globulin 4.6 H Albumin/Globulin Ratio 0.6 L Triglycerides Cholesterol LDL Cholesterol, Calc HDL Cholesterol Cholesterol/HDL Ratio Ur Collection Type Clean Catch Urine Color Yellow Urine Clarity Clear Urine pH 5.5 Ur Specific [place] 1.015 Urine Protein Trace Urine Glucose (UA) Negative Urine Ketones Negative Urine Blood 2+ A Urine Nitrite Negative Urine Bilirubin Negative Urine Urobilinogen (Auto) Negative Ur Leukocyte Esterase Negative Urine RBC 19 H Urine WBC 2 Ur Squamous Epith Cells 2 Urine Bacteria None Hyaline Casts < 1 Peritoneal Color Yellow Peritoneal Appearance Cloudy Peritoneal WBC 65214 Peritoneal RBC 2000 Periton Polynucl WBCs 85 Periton Mononucl WBCs 15 Urine Opiates Screen Negative Urine Fentanyl Screen Negative Ur Barbiturates Screen Negative U Amphetamin/Meth Scrn Negative U Benzodiazepines Scrn Negative U Cocaine Metab Screen Negative U Marijuana (THC) Screen Negative Blood Type A Positive Antibody Screen NEGATIVE Crossmatch See Detail Blood Bank Wristband ID Yes 04/20/25 04/21/25 18:14 04:29 WBC 6.8 D RBC 2.01 L Hgb 6.6 L* D Hct 19.6 L* MCV 98 MCH 32.8 MCHC 33.7 RDW Std Deviation 58.0 H Plt Count 96 L D Neut % (Auto) 81 H Lymph % (Auto) 6 L Williamson % (Auto) 12 Eos % (Auto) 1 Baso % (Auto) 0 Neut # (Auto) 5.5 Lymph # (Auto) 0.4 L [place] # (Auto) 0.8 Eos # (Auto) 0.0 Baso # (Auto) 0.0 Immature Gran # (Auto) 0.04 H Absolute Nucleated RBC 0.00 Immature Gran % 1 H Nucleated RBC % 0 Retic Count (auto) 2.8 H Absolute Retic 55.4 Immature Retic Fraction 18.8 H Retic Hgb Content CHr 36.0 H PT 16.5 H INR 1.6 H APTT 36.4 H Sodium 139 Potassium 4.6 D Chloride 109 H Carbon Dioxide 17.6 L Anion Gap 12 BUN 53 H Creatinine 2.9 H Estim Creat Clear Calc 32.1 L eGFR 25 L BUN/Creatinine Ratio 18 Glucose 117 H Calculated Osmolality 292 Calcium 7.6 L Corrected Calcium 8.8 Phosphorus 4.4 Magnesium 1.9 Iron 21 L TIBC 217 L Iron Saturation 9 L Unsat Iron Binding 196 L Total Bilirubin 1.0 AST 28 ALT 19 Alkaline Phosphatase 149 H D Ammonia 13 Lactate Dehydrogenase 141 Troponin I B-Natriuretic Peptide Total Protein 6.6 Albumin 2.5 L Globulin 4.1 H Albumin/Globulin Ratio 0.6 L Triglycerides 58 Cholesterol 76 L LDL Cholesterol, Calc 48 HDL Cholesterol 16 L Cholesterol/HDL Ratio 4.8 Ur Collection Type Urine Color Urine Clarity Urine pH Ur Specific [place] Urine Protein Urine Glucose (UA) Urine Ketones Urine Blood Urine Nitrite Urine Bilirubin Urine Urobilinogen (Auto) Ur Leukocyte Esterase Urine RBC Urine WBC Ur Squamous Epith Cells Urine Bacteria Hyaline Casts Peritoneal Color Peritoneal Appearance Peritoneal WBC Peritoneal RBC Periton Polynucl WBCs Periton Mononucl WBCs Urine Opiates Screen Urine Fentanyl Screen Ur Barbiturates Screen U Amphetamin/Meth Scrn U Benzodiazepines Scrn U Cocaine Metab Screen U Marijuana (THC) Screen Blood Type Antibody Screen Crossmatch Blood Bank Wristband ID Quality Measures Quality Measures VTE prophylaxis Assessment & Plan Assessment Current Active Medications: Generic Name Dose Route Start Last Admin Trade Name Freq PRN Reason Stop Dose Admin Acetaminophen 650 mg 04/20/25 17:54 Acetaminophen Supp 650 Mg Supp TX 05/20/25 17:53 Q6HR PRN Fever > 100.4 or pain 1-3 Docusate Sodium 100 mg 04/20/25 17:54 Docusate Sod 100 Mg Capsule PO 05/20/25 17:53 QDAY PRN CONSTIPATION Protocol Furosemide 40 mg 04/21/25 09:00 04/21/25 08:34 Furosemide 40 Mg Tablet PO 05/21/25 08:59 40 mg QDAY PHYLLIS Administration Albumin Human 25 gm in 100 mls @ 100 mls/hr 04/20/25 21:00 04/21/25 09:42 Albuminar-25 Ivpb IV 04/23/25 20:59 100 mls/hr BID PHYLLIS Administration Ceftriaxone Sodium/Dextrose 2 gm in 50 mls @ 100 mls/hr 04/22/25 09:00 Rocephin/D5w 2gm IV 04/27/25 08:59 QDAY PHYLLIS Lactulose 10 gm 04/20/25 18:01 Lactulose Syrup 20 Gm/30 Ml Udc PO 05/20/25 21:59 TID PRN CONSTIPATION Protocol Ondansetron HCl 4 mg 04/20/25 17:54 Ondansetron Inj 2 Mg/Ml Inj 2 Ml IVP 05/20/25 17:53 Q6H PRN NAUSEA OR VOMITING Protocol Oxycodone/Acetaminophen 1 tab 04/20/25 17:54 Oxycodone/Apap 5/325 Tablet PO 04/25/25 17:53 Q6H PRN PAIN SCALE 4-10(Mod-Sev Pantoprazole Sodium 40 mg 04/21/25 09:00 04/21/25 08:35 Pantoprazole 40 Mg Tablet PO 05/21/25 08:59 40 mg QDAY PHYLLIS Administration Pharmacy Consult 1 each 04/20/25 22:01 Pharmacy To Consult Pneumovacc XX 05/20/25 22:00 PRN PRN CONSULT Pneumococcal Polyvalent Vaccine 0.5 ml 04/21/25 12:00 Pneumoc 20-Nancy Conj-Dip Crm/Pf 0.5 Ml Syringe IMi 04/21/25 12:01 .ONCE ONE Sennosides 1 tab 04/20/25 17:54 Senna Tablet PO 05/20/25 17:53 QDAY PRN constipation Protocol Plan 54M with history of cirrhosis with ascites, chronic anemia, esophageal varices with band ligation, and ventral hernia presented for generalized weakness. In ED, [place] 75[address] WBC and 2000 RBC. CXR shows lower lobes atelectasis, otherwise unremarkable. He was admitted for management of SBP with IV antibiotics. #SBP -hx of paracentesis History of cirrhosis secondary to alcohol use. Peritoneal fluid shows 14744 WBC and 2000 RBC. IGOR-SOFA score of 6. (>=7 suggests more severe illness) Plan: - Continue albumin infusion - Continue Ceftriaxone 2g IV every 24H - Pending blood cultures - Pending peritoneal fluid culture and fluid analysis #Ascites #Post Paracentesis 4L removed -in setting of liver cirrhosis Plan : - continue furosemide and spironlactone - theraputic paracentesis today #Acute blood loss anemia #Concern for Upper GI Bleed #Hx of esophageal varices Plan: - Hgb decreases from 8.6 to 6.6 today. 1 unit of blood ordered. - GI consulted for EGD - Start Octreotide - FOBT ordered - Trend h/h daily. - Daily CBC to monitor Hgb, blood transfusion if below 7 - Low iron and TIBC, will replete after blood transfusion. 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 Child-Awad Score 9. Child Class B. Abdominal surgery aundrea-operative mortality: 30% Maddrey's Discriminant Point 22.6. Good prognosis. INR 1.6 - >32 points indicated poor prognosis and pt may benefit from glucocorticoid therapy. Plan: - Consider referral to curb supervisor or liver transplant center for pt with MELD score >=0 - Avoidance of hepatotoxins, codeine, and meperidine - Monitor for coagulopathy, signs of bleeding (INR 1.4, Plt 163k) - Monitor for hepatic encephalopathy (Ammonia 13) - Medication dose adjustment #NAGMA -Diarrhoea vs proximal RTA bicarb loss ? -Denies passing loose stools. Bicarb 17. K normal Plan -F/u urine electrolytes -Sodium bicarb tab given x1 -F/U on labs #CKD stage IV Shank Cutter 2.8, BUN 50. Baseline Shank Cutter around 3. Plan: - Start albumin infusion (1g/kg, up to 100g/day) -Avoid nephrtoxic agents -Renaly dose meds -str in/out -F/U daily renal panel #Hyponatremia - resolved Na 139 today Plan: - Daily CMP - Correct Na if falls below 120, daily correction by no more than 4 to 6 mEq/L Dispo: Admin to [facility] for IV antibiotics DVT prophylaxis: SCD GI prophylaxis: Protonix 40 Diet: Renal diet Lines: Peripheral IV Code status: Full code Case discussed with my senior resident Dr. Bolivar Case discussed with my attending Dr. Tiki Carvalho DO PGY 1 Attending Provider Attestation/Addendum Yvette Arora DO, attest that I was physically present for the maldonado portions of the service and evaluated the patient with the resident and I reviewed and discussed the case with the resident and agree with the resident's findings and plans of care as documented above Patient seen and eval this a.m. He states that he is feeling better today. He does not endorse any pain in his abdomen, which is soft and nontender on palpation, but distended due to fluid. Positive fluid wave noted and umbilical hernia noted. Patient does not endorse having any melanotic or bright red blood in the stool. Hemoglobin dropped from 8-6.6. Patient does have a history of variceal bleeding status post banding. Will place patient on Protonix and octreotide drip. Will transfuse 1 unit PRBCs and follow-up posttransfusion H&H. Will consult GI for possible endoscopy due to concern for GI bleeding. Patient remains on Rocephin due to SBP. Patient to undergo bedside paracentesis today and will follow-up with fluid studies to assess for antibiotic response
--- NOTE | 2025-04-21 12:13 | PC.SS ---
Hilario Flores is a 53-year-old male admitted for SBP. SS conducted bedside contact with the patient to complete initial assessment and to discuss discharge planning. Patient confirmed demographic information. Patient identifies his Life Partner Nathalie Llanes [phone] as his surrogate decision maker. Patient resides at home with his family. Pt states he is able to complete all ADL?s independently, no need for any source of DME. Pts PCP is Dr. Erin Eason which he states he seen her about 2 months ago and his pharmacy of choice is [facility] in [place]. DC options discussed pt wishes to return home. Pts family will provide transportation on behalf of the pt at the time of DC. No further intervention required at this time, social professionals would be available to address any further concerns. DC Plan: Home Contact: Nathalie Llanes (Life Partner) PCP: Dr. Erin Eason
[2025-04-21] MEDS: OCTREOTIDE ACET INJ 1,000 MCG in SODIUM CHLORIDE 0.9% 100 ML 5.1 MCG IV (13:26)
--- NOTE | 2025-04-21 16:23 | PD.RESCONSUL ---
HPI Data of Consult Consult date: 04/21/25 Requesting Physician: Halyee Salazar MD Admitting Provider: Haylee Salazar MD Attending Provider: Haylee Salazar MD Primary Care Provider: Physician No Primary/Family Consult Narrative Reason for consult: hx esoph calixto bleed post banding, c/f Up GI bleed History of present illness: Patient is a 54-year-old male with a PMH of alcohol use disorder induced cirrhosis, abdominal hernia, esophageal varices with previous banding, and anemia presenting with low blood counts and feeling like he was about to pass out. He was subsequently diagnosed with SBP secondary to ascitic fluid with 10,000 WBCs and was given 1 unit PRBCs. Patient states that he has never smoked or use illicit substances, and stopped drinking alcohol upon diagnosis of cirrhosis. Drank 12 beers a day when he used alcohol. Patient also states he has had lower extremity petechiae for approximately a week. GI consulted for low hemoglobin with a history of esophageal varices requiring banding suspected potential GI bleed. cc:: cc: Haylee Salazar MD Review of Systems Review of Systems Narrative Review of Systems: as per HPI Past Medical History Past Medical History Comments PMH COMMENT: Alcohol use disorder induced cirrhosis, chronic anemia, abdominal hernia, esophageal varices Exam Vital Signs Temp Pulse Resp BP Pulse Ox O2 Del Method O2 Flow Rate 98.6 F 88 16 119/69 98 Room Air 6 04/21/25 15:00 04/21/25 16:16 04/21/25 15:00 04/21/25 15:00 04/21/25 15:00 04/21/25 11:58 04/20/25 18:17 Constitutional Constitutional: no acute distress Routine Cardiovascular Exam Cardiovascular: Present RRR, S1 and S2 Routine Abdominal Exam Abdominal: Present normoactive bowel sounds and distended Comments: Fluid shift not seen; exam could be performed without pain Significant abdominal hernia (fist-sized) Results Labs 04/21/25 16:10 04/21/25 04:29 Labs: Short CBC 04/21/25 Range/Units 04:29 WBC 6.8 D (3.8-10.6) Thou/mm3 Hgb 6.6 L* D (13.5-16.0) g/dL Hct 19.6 L* (41.0-53.0) % Plt Count 96 L D (140-440) Thou/mm3 BMP 04/21/25 04:29 Sodium 139 Potassium 4.6 D Chloride 109 H Carbon Dioxide 17.6 L BUN 53 H Creatinine 2.9 H Glucose 117 H Calcium 7.6 L Liver Function 04/21/25 Range/Units 04:29 Total Bilirubin 1.0 (0.3-1.2) mg/dL AST 28 (0-34) U/L ALT 19 (10-49) U/L Alkaline Phosphatase 149 H D (46-116) U/L Albumin 2.5 L (3.5-5.0) gm/dL Quality Measures Quality Measures VTE prophylaxis Medications Home Medications and Allergies Home Medications ?Medication ?Instructions ?Recorded ?Confirmed ?Type furosemide 80 mg tablet 80 mg PO 1XD 08/07/24 04/20/25 History Held on 08/12/24. Instructions: Resume on 08/23/24. Follow-up with PCP before resuming furosemide propranolol 10 mg tablet 10 mg PO 3XD 08/07/24 04/20/25 History Allergies Allergy/AdvReac Type Severity Reaction Status Date / Time No Known Allergies Allergy Verified 04/20/25 13:08 Visit Medications Acetaminophen (Acetaminophen Supp 650 Mg Supp) 650 mg VT Q6HR PRN PRN Reason: Fever > 100.4 or pain 1-3 Stop: 05/20/25 17:53 Docusate Sodium (Docusate Sod 100 Mg Capsule) 100 mg PO QDAY PRN; Protocol PRN Reason: CONSTIPATION Stop: 05/20/25 17:53 Furosemide (Furosemide 40 Mg Tablet) 40 mg PO QDAY PHYLLIS Stop: 05/21/25 08:59 Last Admin: 04/21/25 08:34 Dose: 40 mg Albumin Human (Albuminar-25 Ivpb) 25 gm in 100 mls @ 100 mls/hr IV BID PHYLLIS Stop: 04/23/25 20:59 Last Admin: 04/21/25 09:42 Dose: 100 mls/hr Ceftriaxone Sodium/Dextrose (Rocephin/D5w 2gm) 2 gm in 50 mls @ 100 mls/hr IV QDAY PHYLLIS Stop: 04/27/25 08:59 Octreotide Acetate 1,000 mcg/ (Sodium Chloride) 102 mls @ 5.1 mls/hr IV .Q20H PHYLLIS; Protocol Stop: 04/25/25 10:20 Last Admin: 04/21/25 13:26 Dose: 50 mcg/hr, 5.1 mls/hr Lactulose (Lactulose Syrup 20 Gm/30 Ml Udc) 10 gm PO TID PRN; Protocol PRN Reason: CONSTIPATION Stop: 05/20/25 21:59 Ondansetron HCl (Ondansetron Inj 2 Mg/Ml Inj 2 Ml) 4 mg IVP Q6H PRN; Protocol PRN Reason: NAUSEA OR VOMITING Stop: 05/20/25 17:53 Oxycodone/Acetaminophen (Oxycodone/Apap 5/325 Tablet) 1 tab PO Q6H PRN PRN Reason: PAIN SCALE 4-10(Mod-Sev Stop: 04/25/25 17:53 Pantoprazole Sodium (Pantoprazole 40 Mg Tablet) 40 mg PO BID PHYLLIS Stop: 05/21/25 20:59 Pharmacy Consult (Pharmacy To Consult Pneumovacc) 1 each XX PRN PRN PRN Reason: CONSULT Stop: 05/20/25 22:00 Sennosides (Senna Tablet) 1 tab PO QDAY PRN; Protocol PRN Reason: constipation Stop: 05/20/25 17:53 Discontinued Medications Albuterol (Albuterol Rt 2.5 Mg/3 Ml Nebu) 2.5 mg INH X1 ONE Stop: 04/20/25 18:00 Last Admin: 04/20/25 18:16 Dose: 2.5 mg Dextrose (Dextrose 50%-Water Inj 50 Ml Syringe) 50 ml IV X1 ONE Stop: 04/20/25 18:00 Last Admin: 04/20/25 18:52 Dose: 50 ml Ceftriaxone Sodium/Dextrose (Rocephin/D5w 1gm Iv Premix) 1 gm in 50 mls @ 100 mls/hr IV X1 ONE Stop: 04/20/25 17:01 Last Infusion: 04/20/25 17:32 Dose: Infused Ceftriaxone Sodium 2 gm/ (Sodium Chloride) 50 mls @ 100 mls/hr IV QDAY PHYLLIS Stop: 04/27/25 08:59 Last Admin: 04/21/25 08:35 Dose: 100 mls/hr Ceftriaxone Sodium/Dextrose (Rocephin/D5w 1gm Iv Premix) 1 gm in 50 mls @ 100 mls/hr IV X1 ONE; Protocol Stop: 04/20/25 18:44 Last Admin: 04/20/25 18:45 Dose: 100 mls/hr Magnesium Sulfate (Magnesium Sulfate Ivpb) 4 gm in 50 mls @ 12.5 mls/hr IV X1 ONE Stop: 04/20/25 23:31 Last Admin: 04/20/25 21:24 Dose: 12.5 mls/hr Insulin Human Regular (Insulin Hum Regular 1 Unit/0.01 Ml (Per Unit)) 10 unit IV X1 ONE Stop: 04/20/25 18:00 Insulin Human Regular (Insulin Hum Regular 1 Unit/0.01 Ml (Per Unit)) 5 unit IV X1 ONE Stop: 04/20/25 18:40 Last Admin: 04/20/25 18:53 Dose: 5 unit Pantoprazole Sodium (Pantoprazole Inj 40 Mg Vial) 40 mg IVP QDAY PHYLLIS Stop: 05/21/25 08:59 Pantoprazole Sodium (Pantoprazole 40 Mg Tablet) 40 mg PO QDAY PHYLLIS Stop: 05/21/25 08:59 Last Admin: 04/21/25 08:35 Dose: 40 mg Pneumococcal Polyvalent Vaccine (Pneumoc 20-Nancy Conj-Dip Crm/Pf 0.5 Ml Syringe) 0.5 ml IMi .ONCE ONE Stop: 04/21/25 12:01 Sodium Polystyrene Sulfonate (Sod Polystyrene Sulfon Susp 15 Gm/60 Ml Btl) 30 gm PO X1 ONE Stop: 04/20/25 18:00 Last Admin: 04/20/25 18:45 Dose: 30 gm Assessment & Plan Plan Patient is a 54-year-old male with a PMH of alcohol use disorder induced cirrhosis, abdominal hernia, esophageal varices with previous banding, and anemia presenting with spontaneous bacterial peritonitis. #Chronic anemia Patient history of esophageal varices with banding, with current admission hemoglobin of 6.6, suggests potential esophageal bleeding. Plan: Patient will be consented for EGD (tomorrow), and will be made n.p.o. after midnight. #Lower extremity petechiae Patient has lower extremity petechiae on both legs, with an admission platelet count of 96. Plan: Per primary team #Spontaneous bacterial peritonitis, Abdominal hernia, alcohol use disorder induced cirrhosis Plan: Per primary team Attending Provider Attestation/Addendum Patient evaluated along with my internal medicine team Patient examined Labs reviewed Imaging studies reviewed Hemoglobin 6.6 g in the setting of chronic liver disease due to alcohol patient being evaluated for liver transplant I believe at [facility] BUN/creatinine 53 and 2.9 Plan is to Obtain consent for fiberoptic esophagogastroduodenoscopy with possible biopsy possible therapeutic intervention under intravenous moderate sedation Further evaluation after above
[2025-04-21 16:24] LABS: Hematocrit 23.8 % (41.0-53.0)
[2025-04-21 16:44] LABS: Hemoglobin 7.9 g/dL (13.5-16.0)
--- NOTE | 2025-04-21 17:14 | PD.RESPROC ---
PROCEDURES: Procedure Date / Time 04/21/25 1714 Procedural Time Out Time out performed: YES Procedure Narrative Procedure Narrative: A time-out was conducted to confirm patient identity, procedure, and site. After reviewing ultrasound imaging and clinical findings, the lower abdomen was identified as the target site. The procedure was performed at the bedside with the assistance of the ICU exercise physiology professor, Dr. Tillman. Bedside ultrasound was used to identify a fluid pocket and sergei an appropriate location, avoiding bowel and vasculature. I cleaned my hands immediately before the procedure and wore a surgical cap, mask, protective eyewear, sterile gown, and sterile gloves throughout. The patient was positioned in a semi-recumbent position with the head of the bed elevated. The abdominal wall was prepped and draped in a sterile fashion using chlorhexidine scrub. A total of 5 ml of 1% lidocaine was used to anesthetize the skin, subcutaneous tissue, fascia, and peritoneum. A needle attached to a 60 ml syringe was inserted perpendicular to the abdominal wall under ultrasound guidance. Free peritoneal fluid was aspirated, and a paracentesis catheter was advanced over the needle and secured in place. The needle was removed, and fluid was drained into evacuated bottles or drainage bags. A total of 4000 ml of ascitic fluid was removed without immediate complication. The catheter was then withdrawn, and a sterile occlusive dressing was applied. The patient tolerated the procedure well. Post-procedure vitals were stable. Estimated blood loss was less than 5 cc. Paracentesis Indication: other (confirmed SBP) Informed consent obtained: from patient Time out done, and the following verified: correct patient, side and site, procedure, patient position and implants and/or equipment Procedure: therapeutic paracentesis Location: RLQ Local anesthetic used: lidocaine 1% Amount of anesthesia used (mL): 5 Bedside ultrasound used: yes, Ascites confirmed and location marked Preparation: sterile prep and drape Amount of fluid obtained (mL): 4,000 Fluid: cloudy EBL(ml): 3 Post procedure exam: awake, alert, normal BP and normal HR Patient tolerated procedure: well Complications: none Procedure comment: Attending note I was present for the entire procedure and assisted with utilization of ultrasound. We identified a pocket of fluid that appeared safe to tap. Patient was prepared in the usual sterile fashion. The resident team performed the procedure under my direct supervision.
[2025-04-21] MEDS: SODIUM BICARBONATE 650 MG TABLET PO (18:40)
[2025-04-21 18:47] LABS: Peritoneal Fluid WBC 5280 /cmm
[2025-04-21 18:53] LABS: Peritoneal Fluid Appearance Cloudy; Peritoneal Fluid Color Colorless; Peritoneal Fluid Mononuclear 25 %; Peritoneal Fluid Polynuclear 75 %; RBC,Peritoneal Fluid 2000 /cmm
[2025-04-21 19:07] LABS: Albumin, Peritoneal Fluid < 1.0 gm/dL; Amylase,Peritoneal Fluid < 20 IU/L; Glucose,Peritoneal Fluid 140 mg/dL; LDH,Peritoneal Fluid 77 IU/L; Protein Total,Peritoneal Fluid < 2 g/dL
[2025-04-21 19:55] LABS: Chloride,Urine Random 98.8 mMol/L (55.0-125.0); Potassium,Urine Random 14 mMol/L (12-62); Sodium,Urine Random 107.0 mMol/L (20.0-110.0)
[2025-04-22] VITALS (29 sets, daily range): BP systolic 81–126; BP diastolic 45–97; PULSE 66–97; RESP 13–20; TEMP 36.2–37; O2SAT 94–100
[2025-04-22 01:29] LABS: Hematocrit 20.4 % (41.0-53.0)
[2025-04-22 01:48] LABS: Hemoglobin 6.6 g/dL (13.5-16.0)
--- NOTE | 2025-04-22 07:12 | PC.NURSE ---
called pharmacist for sandostatin iv bag.
--- NOTE | 2025-04-22 07:15 | PC.NURSE ---
called lab and notified blood transfusion is done and ok to draw am lab at 08:00am.
--- NOTE | 2025-04-22 07:49 | ESPR_ITS ---
<Statement entered by Marlo Bolivar MD - 04/22/25 17:56> Patient was seen and examined at the bedside. Patient had troponins hemoglobin overnight however improved after PRBC unit to 8.6 awaiting EGD per GI recommendations. Will continue with octreotide and Protonix. Bicitra was added for NAGMA. Cultures negative for 24 hours. Peritoneal fluid showed no growth. Continue 2 g ceftriaxone for now. Electrolytes were repleted. All labs are also reviewed. I discussed and supervised with the internal combustion engine subassembler physician who took care of this patient. I personally saw and examined the patient. I agree with most of the assessment and plan. Disclaimer: Despite multiple revisions, due to the dictation software being used, the document bellow may not be free of grammatical errors including phonetic/typographic errors. However, this does not deter from our commitment to providing health care in the patient's best interest in mind. Plan of care discussed with attending Physician Dr. Tiki Bolivar MD PGY-3 Documentation for date of: 04/22/25 Subjective Subjective Interval history: No acute events overnight patient had 4 L removed from paracentesis yesterday reports feeling less abdominal distention Exam Vital Signs Temp Pulse Resp BP Pulse Ox O2 Del Method O2 Flow Rate 97.5 F 73 17 115/64 97 Room Air 0 04/22/25 07:31 04/22/25 07:31 04/22/25 07:31 04/22/25 07:31 04/22/25 07:31 04/22/25 07:31 04/22/25 07:12 Narrative Exam General: in no distress. Oriented x 3, normal mood and affect . Ambulating without difficulty. Skin: Jaundice. Hyperpigmentation to lower abdominal region. Eyes: Sclera icterus. Neck: Supple, without lesions, bruits, or adenopathy, thyroid non-enlarged and non-tender Heart: No cardiomegaly or thrills; regular rate and rhythm, murmur appreciated on the left second intercostal space Lungs: Diminished breathe sound at bilateral lower lobes. No rales, wheeze, or rhonchi Abdomen: Bowel sounds normal, large anterior abdominal hernia with discoloration, no drainage of ascitic fluid, wearing abdominal binder today Skin: Bilateral lower extremity petechiae noted Objective Labs 04/23/25 04:45 04/23/25 04:45 Labs: Laboratory Results - last 24 hr 04/20/25 04/21/25 04/21/25 13:31 04:29 16:10 Hgb 7.9 L Hct 23.8 L Retic Count (auto) 2.8 H Absolute Retic 55.4 Immature Retic Fraction 18.8 H Retic Hgb Content CHr 36.0 H Ur Random Sodium Ur Random Potassium Ur Random Chloride Peritoneal Color Peritoneal Appearance Peritoneal WBC Peritoneal RBC Periton Polynucl WBCs Periton Mononucl WBCs Peritoneal Tot Protein Peritoneal Albumin Peritoneal LDH Peritoneal Glucose Peritoneal Amylase Blood Type A Positive Antibody Screen NEGATIVE Crossmatch See Detail Blood Bank Wristband ID Yes 04/21/25 04/21/25 04/22/25 18:25 19:20 00:59 Hgb 6.6 L* Hct 20.4 L* Retic Count (auto) Absolute Retic Immature Retic Fraction Retic Hgb Content CHr Ur Random Sodium 107.0 Ur Random Potassium 14 Ur Random Chloride 98.8 Peritoneal Color Colorless Peritoneal Appearance Cloudy Peritoneal WBC 5280 Peritoneal RBC 2000 Periton Polynucl WBCs 75 Periton Mononucl WBCs 25 Peritoneal Tot Protein < 2 Peritoneal Albumin < 1.0 Peritoneal LDH 77 Peritoneal Glucose 140 Peritoneal Amylase < 20 Blood Type Antibody Screen Crossmatch Blood Bank Wristband ID Quality Measures Quality Measures VTE prophylaxis Assessment & Plan Assessment Current Active Medications: Generic Name Dose Route Start Last Admin Trade Name Elmer PRN Reason Stop Dose Admin Acetaminophen 650 mg 04/20/25 17:54 Acetaminophen Supp 650 Mg Supp MO 05/20/25 17:53 Q6HR PRN Fever > 100.4 or pain 1-3 Docusate Sodium 100 mg 04/20/25 17:54 Docusate Sod 100 Mg Capsule PO 05/20/25 17:53 QDAY PRN CONSTIPATION Protocol Furosemide 40 mg 04/21/25 09:00 04/21/25 08:34 Furosemide 40 Mg Tablet PO 05/21/25 08:59 40 mg QDAY PHYLLIS Administration Albumin Human 25 gm in 100 mls @ 100 mls/hr 04/20/25 21:00 04/21/25 23:49 Albuminar-25 Ivpb IV 04/23/25 20:59 100 mls/hr BID PHYLLIS Administration Ceftriaxone Sodium/Dextrose 2 gm in 50 mls @ 100 mls/hr 04/22/25 09:00 Rocephin/D5w 2gm IV 04/27/25 08:59 QDAY PHYLLIS Octreotide Acetate 1,000 mcg/ 102 mls @ 5.1 mls/hr 04/21/25 10:20 04/21/25 13:26 Sodium Chloride IV 04/25/25 10:20 50 mcg/hr .Q20H PHYLLIS 5.1 mls/hr Administration Protocol 50 MCG/HR Lactulose 10 gm 04/20/25 18:01 Lactulose Syrup 20 Gm/30 Ml Udc PO 05/20/25 21:59 TID PRN CONSTIPATION Protocol Ondansetron HCl 4 mg 04/20/25 17:54 Ondansetron Inj 2 Mg/Ml Inj 2 Ml IVP 05/20/25 17:53 Q6H PRN NAUSEA OR VOMITING Protocol Oxycodone/Acetaminophen 1 tab 04/20/25 17:54 Oxycodone/Apap 5/325 Tablet PO 04/25/25 17:53 Q6H PRN PAIN SCALE 4-10(Mod-Sev Pantoprazole Sodium 40 mg 04/21/25 21:00 04/21/25 20:07 Pantoprazole 40 Mg Tablet PO 05/21/25 20:59 40 mg BID PHYLLIS Administration Pharmacy Consult 1 each 04/20/25 22:01 Pharmacy To Consult Pneumovacc XX 05/20/25 22:00 PRN PRN CONSULT Sennosides 1 tab 04/20/25 17:54 Senna Tablet PO 05/20/25 17:53 QDAY PRN constipation Protocol Plan 54M with history of cirrhosis with ascites, chronic anemia, esophageal varices with band ligation, and ventral hernia presented for generalized weakness. In ED, [place] 29711 WBC and 2000 RBC. CXR shows lower lobes atelectasis, otherwise unremarkable. He was admitted for management of SBP with IV antibiotics, patient remains afebrile and ascites show 1+ 1/WBC and no growth. Continuing on IV ceftriaxone for SBP. #SBP -hx of paracentesis History of cirrhosis secondary to alcohol use. Peritoneal fluid shows 27970 WBC and 2000 RBC. IGOR-SOFA score of 6. (>=7 suggests more severe illness) Per patient he gets therapeutic paracentesis every 2 months Plan: - Continue albumin infusion - Continue Ceftriaxone 2g IV every 24H - Blood cultures NGTD at 24 hours - peritoneal fluid culture and fluid analysis: 1+ WBC, and no growth #Ascites #Post Paracentesis 4L removed -in setting of liver cirrhosis Plan : - continue furosemide and spironlactone #Acute blood loss anemia #Concern for Upper GI Bleed #Hx of esophageal varices Plan: - Hgb decreases from 8.6 to 6.6 today. 2 units of blood given overnight, hemoglobin now 8.6 - GI consulted for EGD - Start Octreotide - FOBT ordered - Trend h/h daily. - Daily CBC to monitor Hgb, blood transfusion if below 7 - Low iron and TIBC, will replete after blood transfusion. 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 Child-Awad Score 9. Child Class B. Abdominal surgery aundrea-operative mortality: 30% Maddrey's Discriminant Point 22.6. Good prognosis. INR 1.6 - >32 points indicated poor prognosis and pt may benefit from glucocorticoid therapy. Plan: - Consider referral to furnace operator or liver transplant center for pt with MELD score >=0 patient - Avoidance of hepatotoxins, codeine, and meperidine - Monitor for coagulopathy, signs of bleeding (INR 1.4, Plt 163k) - Monitor for hepatic encephalopathy (Ammonia 13) - Medication dose adjustment #NAGMA - Diarrhea vs proximal RTA bicarb loss ? -Denies passing loose stools. Bicarb 17. 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 Baseline Van Owner Operator around 3. Plan: - Start albumin infusion (1g/kg, up to 100g/day) -Albumin infusion given yesterday 100 g after paracentesis -Avoid nephrtoxic agents -Renaly dose meds -str in/out -F/U daily renal panel #Hyponatremia - resolved Na 139 today Plan: - Daily CMP - Correct Na if falls below 120, daily correction by no more than 4 to 6 mEq/L Dispo: Admin to MedSurg for IV antibiotics DVT prophylaxis: SCD GI prophylaxis: Protonix 40 Diet: Renal diet Lines: Peripheral IV Code status: Full code Case discussed with my senior resident Dr. Bolivar Case discussed with my attending Dr. Tiki Montiel MD PGY-1 Attending Provider Attestation/Addendum Maite, Yvette Fairbanks DO, attest that I was physically present for the maldonado portions of the service and evaluated the patient with the resident and I reviewed and discussed the case with the resident and agree with the resident's findings and plans of care as documented above Patient seen eval this a.m. He states that he is feeling well. No acute events overnight. Patient is wearing an abdominal binder if he has relief from the paracentesis. He denies any active abdominal pain. Hemoglobin downtrending and received 1 unit of PRBCs overnight. Patient is pending endoscopy this evening due to concern for results of variceal bleed. Patient otherwise has no acute complaints. He had a bowel movement this morning and he states that regular pain appearance and was brown. Will follow-up with endoscopy results. Will continue octreotide and Protonix at this time.
[2025-04-22] MEDS: OCTREOTIDE ACET INJ 1,000 MCG in SODIUM CHLORIDE 0.9% 100 ML 5.1 MCG IV (07:50)
[2025-04-22 08:10] LABS: Basophils # (Auto) 0.0 Thou/mm3 (0.0-0.2); Basophils % (Auto) 0 % (0-2.5); Eosinophils # (Auto) 0.1 Thou/mm3 (0.0-0.5); Eosinophils % (Auto) 2 % (0-10); Hematocrit 24.9 % (41.0-53.0); Immature Granulocytes Auto 0.04 Thou/mm3 (0.00-0.00); Lymphocytes # (Auto) 0.4 Thou/mm3 (1.0-4.8); Lymphocytes % (Auto) 7 % (10-50); Mean Corpuscular HGB Conc 34.5 g/dl (31.0-37.0); Mean Corpuscular Hemoglobin 31.9 pg (25.0-35.0); Mean Corpuscular Volume 92 fL (80-100); Monocytes # (Auto) 0.6 Thou/mm3 (0.0-0.8); Monocytes % (Auto) 11 % (0-12); Neutrophils # (Auto) 4.6 Thou/mm3 (1.8-7.7); Neutrophils % (Auto) 80 % (37-80); Nucleated Red Blood Cell # 0.00 Thou/mm3 (0.00-0.00); Nucleated Red Blood Cell % 0 /100 WBC (0); Platelet Count 91 Thou/mm3 (140-440); RDW Standard Deviation 56.1 fL (35.1-43.9); Red Blood Count 2.70 Miln/mm3 (4.50-5.90); White Blood Count 5.8 Thou/mm3 (3.8-10.6)
[2025-04-22 08:16] LABS: Hemoglobin 8.6 g/dL (13.5-16.0)
[2025-04-22 08:35] LABS: Alanine Aminotransferase 12 U/L (10-49); Albumin, Serum 2.9 gm/dL (3.5-5.0); Albumin/Globulin Ratio 0.8 (1.2-2.2); Alkaline Phosphatase 116 U/L (46-116); Anion Gap 10 (7-16); Aspartate Amino Transferase 19 U/L (0-34); BUN/Creatinine Ratio 18 Ratio (12-20); Bilirubin,Total 1.8 mg/dL (0.3-1.2); Blood Urea Nitrogen 53 mg/dL (9-23); Calcium 7.7 mg/dL (8.3-10.6); Calcium (Corrected) 8.6 mg/dL (8.5-10.1); Carbon Dioxide 19.1 mMol/L (20.0-31.0); Chloride 108 mMol/L (98-107); Creatinine (Component) 3.0 mg/dL (0.6-1.3); Estimated Creatinine Clearance 30.6 mL/min (>60); Globulin 3.8 gm/dL (2.3-3.5); Glucose 115 mg/dL (74-106); Magnesium 1.5 mg/dL (1.6-2.6); Osmolality,Calculated 289 (275-295); Phosphorous 4.1 mg/dL (2.4-5.1); Potassium 4.7 mMol/L (3.4-5.1); Sodium 137 mMol/L (136-145); Total Protein 6.7 gm/dL (5.7-8.2); eGFR 24 See Note
[2025-04-22] MEDS: PANTOPRAZOLE 40 MG TABLET PO ×2 (08:39→20:37)
[2025-04-22] MEDS: ALBUMIN HUMAN 25% IVPB 25 GM/100 ML BTL IV ×2 (08:39→20:36)
[2025-04-22] MEDS: cefTRIAXone/D5w 2gm 2 GM/50 ML BAG IV (08:39)
[2025-04-22] MEDS: CITRIC ACID/SODIUM CITR 15 ML UDC (BICITRA) 30 ML PO ×2 (09:38→20:36)
[2025-04-22] MEDS: Magnesium Sulfate 4 GM Ivpb 4 GM/50 ML BAG IV (13:55)
--- NOTE | 2025-04-22 14:24 | PC.SS ---
SS follow up note; HMG low, pending EGD. Patient will possible discharge home tomorrow.
--- NOTE | 2025-04-22 18:06 | SUR.PHASEI ---
1806: Pt. AAOx4, vitals stable, breathing unlabored, no complaint of pain or nausea, no dressing in place, no active bleed noted, report received from Alisa MCGHEE.
--- NOTE | 2025-04-22 18:32 | SUR.PHASEI ---
1832: Pt. AAOx4, vitals stable, breathing unlabored, no complaint of pain or nausea, no dressing in place, no active bleed noted, pt. tolerated sips of water well, gave report to floor nurse prior to transfer to room. Pt. stated he will call family and notify them he is done with his procedure when he gets back up to his room.
[2025-04-23] VITALS (9 sets, daily range): BP systolic 99–121; BP diastolic 62–77; PULSE 65–90; RESP 17–21; TEMP 36.1–36.8; O2SAT 96–98; BMI 33.4
[2025-04-23] MEDS: OCTREOTIDE ACET INJ 1,000 MCG in SODIUM CHLORIDE 0.9% 100 ML 5.1 MCG IV (05:16)
[2025-04-23 05:53] LABS: Basophils # (Auto) 0.0 Thou/mm3 (0.0-0.2); Basophils % (Auto) 1 % (0-2.5); Eosinophils # (Auto) 0.1 Thou/mm3 (0.0-0.5); Eosinophils % (Auto) 1 % (0-10); Hematocrit 25.4 % (41.0-53.0); Immature Granulocytes Auto 0.03 Thou/mm3 (0.00-0.00); Lymphocytes # (Auto) 0.4 Thou/mm3 (1.0-4.8); Lymphocytes % (Auto) 7 % (10-50); Mean Corpuscular HGB Conc 33.9 g/dl (31.0-37.0); Mean Corpuscular Hemoglobin 33.0 pg (25.0-35.0); Mean Corpuscular Volume 97 fL (80-100); Monocytes # (Auto) 0.5 Thou/mm3 (0.0-0.8); Monocytes % (Auto) 9 % (0-12); Neutrophils # (Auto) 4.0 Thou/mm3 (1.8-7.7); Neutrophils % (Auto) 81 % (37-80); Nucleated Red Blood Cell # 0.00 Thou/mm3 (0.00-0.00); Nucleated Red Blood Cell % 0 /100 WBC (0); Platelet Count 93 Thou/mm3 (140-440); RDW Standard Deviation 57.5 fL (35.1-43.9); Red Blood Count 2.61 Miln/mm3 (4.50-5.90); White Blood Count 5.0 Thou/mm3 (3.8-10.6)
[2025-04-23 06:26] LABS: Hemoglobin 8.6 g/dL (13.5-16.0)
[2025-04-23 06:47] LABS: Alanine Aminotransferase 10 U/L (10-49); Albumin, Serum 3.2 gm/dL (3.5-5.0); Albumin/Globulin Ratio 0.8 (1.2-2.2); Alkaline Phosphatase 107 U/L (46-116); Anion Gap 12 (7-16); Aspartate Amino Transferase 15 U/L (0-34); BUN/Creatinine Ratio 19 Ratio (12-20); Bilirubin,Total 1.2 mg/dL (0.3-1.2); Blood Urea Nitrogen 56 mg/dL (9-23); Calcium 8.1 mg/dL (8.3-10.6); Calcium (Corrected) 8.7 mg/dL (8.5-10.1); Carbon Dioxide 20.6 mMol/L (20.0-31.0); Chloride 107 mMol/L (98-107); Creatinine (Component) 3.0 mg/dL (0.6-1.3); Estimated Creatinine Clearance 30.6 mL/min (>60); Globulin 3.8 gm/dL (2.3-3.5); Glucose 137 mg/dL (74-106); Magnesium 2.0 mg/dL (1.6-2.6); Osmolality,Calculated 296 (275-295); Phosphorous 4.4 mg/dL (2.4-5.1); Potassium 4.3 mMol/L (3.4-5.1); Sodium 140 mMol/L (136-145); Total Protein 7.0 gm/dL (5.7-8.2); eGFR 24 See Note
--- NOTE | 2025-04-23 07:43 | ESPR_ITS ---
<Statement entered by Angel Peoples MD - 04/23/25 15:20> Patient seen and examined at bedside. I discussed and supervised with the marketing intern physician who took care of this patient. I personally saw and examined the patient. I agree with most of the assessment and plan. Patient doing well after EGD, had successful banding of varicies. Per GI, continue on CLD today, can discharge tomorrow. Will continue antibiotics, discharge on ciprofloxacin for SBP. Plan of care discussed with attending Dr. marito Peoples MD PGY-2 Documentation for date of: 04/23/25 Subjective Subjective Interval history: No overnight events. Evaluated at bedside. s/p EGD with banding with Dr. Degroot. He is found to have grade II varices in the lower third of esophagus. Three bands were successfully placed. Dr. Degroot recommends pt to stay for one more night on clear liquid diet and follow up with him outpatient in 4-6 weeks. Can discontinue octreotide on discharge. Refer pt to follow up with liver tranplant team at [facility] The patient denies chest pain, shortness of breath, or abdominal pain. Exam Vital Signs Temp Pulse Resp BP Pulse Ox O2 Del Method O2 Flow Rate 97.0 F 68 18 108/72 96 Room Air 3 04/23/25 04:00 04/23/25 04:00 04/23/25 04:00 04/23/25 04:00 04/23/25 04:00 04/23/25 04:00 04/22/25 17:55 Narrative Exam General: in no distress. Oriented x 3, normal mood and affect . Ambulating without difficulty. Skin: Jaundice. Hyperpigmentation to lower abdominal region. Eyes: Sclera icterus. Neck: Supple, without lesions, bruits, or adenopathy, thyroid non-enlarged and non-tender Heart: No cardiomegaly or thrills; regular rate and rhythm, murmur appreciated on the left second intercostal space Lungs: Diminished breathe sound at bilateral lower lobes. No rales, wheeze, or rhonchi Abdomen: Bowel sounds normal, large anterior abdominal hernia with discoloration, no drainage of ascitic fluid. Skin: Bilateral lower extremity petechiae noted Objective Labs 04/24/25 04:39 04/24/25 04:39 Labs: Laboratory Results - last 24 hr 04/22/25 04/23/25 07:47 04:45 WBC 5.8 5.0 RBC 2.70 L 2.61 L Hgb 8.6 L D 8.6 L Hct 24.9 L 25.4 L MCV 92 97 MCH 31.9 33.0 MCHC 34.5 33.9 RDW Std Deviation 56.1 H 57.5 H Plt Count 91 L 93 L Neut % (Auto) 80 81 H Lymph % (Auto) 7 L 7 L [place] % (Auto) 11 9 Eos % (Auto) 2 1 Baso % (Auto) 0 1 Neut # (Auto) 4.6 4.0 Lymph # (Auto) 0.4 L 0.4 L [place] # (Auto) 0.6 0.5 Eos # (Auto) 0.1 0.1 Baso # (Auto) 0.0 0.0 Immature Gran # (Auto) 0.04 H 0.03 H Absolute Nucleated RBC 0.00 0.00 Immature Gran % 1 H 1 H Nucleated RBC % 0 0 Sodium 137 140 Potassium 4.7 4.3 Chloride 108 H 107 Carbon Dioxide 19.1 L 20.6 Anion Gap 10 12 BUN 53 H 56 H Creatinine 3.0 H 3.0 H Estim Creat Clear Calc 30.6 L 30.6 L eGFR 24 L 24 L BUN/Creatinine Ratio 18 19 Glucose 115 H 137 H Calculated Osmolality 289 296 H Calcium 7.7 L 8.1 L Corrected Calcium 8.6 8.7 Phosphorus 4.1 4.4 Magnesium 1.5 L 2.0 Total Bilirubin 1.8 H D 1.2 D AST 19 15 ALT 12 10 Alkaline Phosphatase 116 D 107 Total Protein 6.7 7.0 Albumin 2.9 L 3.2 L Globulin 3.8 H 3.8 H Albumin/Globulin Ratio 0.8 L 0.8 L Quality Measures Quality Measures VTE prophylaxis Assessment & Plan Assessment Current Active Medications: Generic Name Dose Route Start Last Admin Trade Name Freq PRN Reason Stop Dose Admin Acetaminophen 650 mg 04/22/25 09:41 Acetaminophen Supp 650 Mg Supp NM 05/20/25 17:53 Q6HR PRN Fever > 100.4 or pain 1-3 Citric Acid/Sodium Citrate 30 ml 04/22/25 09:00 04/22/25 20:36 Citric Acid/Sodium Citr 15 Ml Udc (Bicitra) PO 05/22/25 08:59 30 ml BID PHYLLIS Administration Docusate Sodium 100 mg 04/20/25 17:54 Docusate Sod 100 Mg Capsule PO 05/20/25 17:53 QDAY PRN CONSTIPATION Protocol Furosemide 40 mg 04/21/25 09:00 04/22/25 08:39 Furosemide 40 Mg Tablet PO 05/21/25 08:59 40 mg QDAY PHYLLIS Administration Albumin Human 25 gm in 100 mls @ 100 mls/hr 04/20/25 21:00 04/22/25 20:36 Albuminar-25 Ivpb IV 04/23/25 20:59 100 mls/hr BID PHYLLIS Administration Ceftriaxone Sodium/Dextrose 2 gm in 50 mls @ 100 mls/hr 04/22/25 09:00 04/22/25 08:39 Rocephin/D5w 2gm IV 04/27/25 08:59 100 mls/hr QDAY PHYLLIS Administration Octreotide Acetate 1,000 mcg/ 102 mls @ 5.1 mls/hr 04/21/25 10:20 04/23/25 05:16 Sodium Chloride IV 04/25/25 10:20 50 mcg/hr .Q20H PHYLLIS 5.1 mls/hr Administration Protocol 50 MCG/HR Lactulose 10 gm 04/20/25 18:01 Lactulose Syrup 20 Gm/30 Ml Udc PO 05/20/25 21:59 TID PRN CONSTIPATION Protocol Ondansetron HCl 4 mg 04/20/25 17:54 Ondansetron Inj 2 Mg/Ml Inj 2 Ml IVP 05/20/25 17:53 Q6H PRN NAUSEA OR VOMITING Protocol Oxycodone/Acetaminophen 1 tab 04/20/25 17:54 Oxycodone/Apap 5/325 Tablet PO 04/25/25 17:53 Q6H PRN PAIN SCALE 4-10(Mod-Sev Pantoprazole Sodium 40 mg 04/21/25 21:00 04/22/25 20:37 Pantoprazole 40 Mg Tablet PO 05/21/25 20:59 40 mg BID PHYLLIS Administration Pharmacy Consult 1 each 04/20/25 22:01 Pharmacy To Consult Pneumovacc XX 05/20/25 22:00 PRN PRN CONSULT Sennosides 1 tab 04/20/25 17:54 Senna Tablet PO 05/20/25 17:53 QDAY PRN constipation Protocol Plan 54M with history of cirrhosis with ascites, chronic anemia, esophageal varices with band ligation, and ventral hernia presented for generalized weakness. In ED, peritoneal fluid shows 78355 WBC and 2000 RBC. CXR shows lower lobes atelectasis, otherwise unremarkable. He was admitted for management of SBP with IV antibiotics, patient remains afebrile and ascites show 1+ 1/WBC and no growth. Continuing on IV ceftriaxone for SBP. #SBP -hx of paracentesis History of cirrhosis secondary to alcohol use. Peritoneal fluid shows 69833 WBC and 2000 RBC. IGOR-SOFA score of 6. (>=7 suggests more severe illness) Per patient he gets therapeutic paracentesis every 2 months Plan: - Continue albumin infusion - Continue Ceftriaxone 2g IV every 24H - Blood cultures NGTD at 48 hours - peritoneal fluid culture and fluid analysis: 1+ WBC, and no growth #Ascites #Post Paracentesis 4L removed -in setting of liver cirrhosis Plan : - continue furosemide, spironlactone held due to low GFR at baseline (<30) - refers pt to continue follow up with liver transplant team at [facility] #Acute blood loss anemia #Concern for Upper GI Bleed #Hx of esophageal varices Plan: - Hgb remains at 8.6 today, 2 units of blood was transfused on 04/22/25. - GI consulted, EGD shows Grade II varices in the lower third of the esophagus. Three bands were placed. GI recommends clear liquid diet today, and advanced to 2g sodium tomorrow. - Continue Octreotide, can discontinue on discharge per Dr. Degroot - Follow up with Dr. Degroot outpatient in 4-6 weeks - FOBT ordered - Trend h/h daily. - Daily CBC to monitor Hgb, blood transfusion if below 7 - Low iron and TIBC, will replete after blood transfusion. 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 Child-Awad Score 9. Child Class B. Abdominal surgery aundrea-operative mortality: 30% Plan: - Consider referral to rod straightener or liver transplant center for pt with MELD score >=0 patient - Avoidance of hepatotoxins, codeine, and meperidine - Monitor for coagulopathy, signs of bleeding (INR 1.6, Plt 93k) - Monitor for hepatic encephalopathy (Ammonia 13) - Medication dose adjustment #NAGMA - Diarrhea vs proximal RTA bicarb loss ? -Denies passing loose stools. Bicarb 17. K normal Plan -F/u urine electrolytes -Sodium bicarb tab given x1 -F/U on labs #CKD stage IV Bark Peeler 2.8, BUN 50. Baseline Bark Peeler around 3. Plan: - Start albumin infusion (1g/kg, up to 100g/day) -Albumin infusion given yesterday 100 g after paracentesis -Avoid nephrtoxic agents -Renaly dose meds -str in/out -F/U daily renal panel #Hyponatremia - resolved Na 139 today Plan: - Daily CMP - Correct Na if falls below 120, daily correction by no more than 4 to 6 mEq/L Dispo: Admin to MedSurg for IV antibiotics DVT prophylaxis: SCD GI prophylaxis: Protonix 40 Diet: Clear liquid diet Lines: Peripheral IV Code status: Full code Case discussed with my senior resident Dr. Poonam Booth Case discussed with my attending Dr. Marito Carvalho DO PGY 1 Attending Provider Attestation/Addendum Yvette Arora DO, attest that I was physically present for the maldonado portions of the service and evaluated the patient with the resident and I reviewed and discussed the case with the resident and agree with the resident's findings and plans of care as documented above Patient seen and eval this a.m. Patient underwent EGD yesterday during which she was found to have 3+ esophageal varices status post banding. Hemoglobin has been stable otherwise. He remains on octreotide drip and Protonix. Will advance diet as per GI recommendations. If hemoglobin is remained stable in a.m., Anticipate discharge in the next 24 hours. Patient has an MRI scheduled at [facility] on Friday which he would like to get to his appointment. Renal function appears unchanged.
[2025-04-23] MEDS: PANTOPRAZOLE 40 MG TABLET PO ×2 (09:20→20:28)
[2025-04-23] MEDS: CITRIC ACID/SODIUM CITR 15 ML UDC (BICITRA) 30 ML PO ×2 (09:21→20:28)
[2025-04-23] MEDS: cefTRIAXone/D5w 2gm 2 GM/50 ML BAG IV (09:21)
[2025-04-23] MEDS: ALBUMIN HUMAN 25% IVPB 25 GM/100 ML BTL IV (09:22)
--- NOTE | 2025-04-23 19:02 | PD.IMPROG ---
Documentation for date of: 04/23/25 Subjective Subjective Interval history: Hemoglobin hematocrit 8.6 and 25.4 Patient status post band ligation of the esophageal varices in total 3 bands were put in Case discussed with internal medicine team Advance diet to 2 g sodium diet and octreotide for additional day Exam Vital Signs Temp Pulse Resp BP Pulse Ox O2 Del Method O2 Flow Rate 97.8 F 80 21 H 116/77 98 Room Air 3 04/23/25 16:00 04/23/25 16:00 04/23/25 16:00 04/23/25 16:00 04/23/25 16:00 04/23/25 16:00 04/23/25 12:00 Objective Labs 04/23/25 04:45 04/23/25 04:45 Labs: Laboratory Results - last 24 hr 04/23/25 04:45 WBC 5.0 RBC 2.61 L Hgb 8.6 L Hct 25.4 L MCV 97 MCH 33.0 MCHC 33.9 RDW Std Deviation 57.5 H Plt Count 93 L Neut % (Auto) 81 H Lymph % (Auto) 7 L [place] % (Auto) 9 Eos % (Auto) 1 Baso % (Auto) 1 Neut # (Auto) 4.0 Lymph # (Auto) 0.4 L [place] # (Auto) 0.5 Eos # (Auto) 0.1 Baso # (Auto) 0.0 Immature Gran # (Auto) 0.03 H Absolute Nucleated RBC 0.00 Immature Gran % 1 H Nucleated RBC % 0 Sodium 140 Potassium 4.3 Chloride 107 Carbon Dioxide 20.6 Anion Gap 12 BUN 56 H Creatinine 3.0 H Estim Creat Clear Calc 30.6 L eGFR 24 L BUN/Creatinine Ratio 19 Glucose 137 H Calculated Osmolality 296 H Calcium 8.1 L Corrected Calcium 8.7 Phosphorus 4.4 Magnesium 2.0 Total Bilirubin 1.2 D AST 15 ALT 10 Alkaline Phosphatase 107 Total Protein 7.0 Albumin 3.2 L Globulin 3.8 H Albumin/Globulin Ratio 0.8 L Impressions Impression: Cirrhotic liver disease with advanced portal hypertension and intractable ascites Patient under evaluation at [facility] for a possible liver transplant Status post band ligation of the esophageal varices in total 3 bands were put in\relatively stable hemoglobin hematocrit 8.6 and 25.4 Continue octreotide for another day and possible discharge in the morning Assessment & Plan Time Spent With Patient Time: Total time spent is greater than 50% in coordination of care (as documented) at patient's floor/unit and/or counseling patient:
[2025-04-24] VITALS: BP 95/66; PULSE 69; PULSE 70; RESP 17; TEMP 37.1; O2SAT 98
[2025-04-24] MEDS: OCTREOTIDE ACET INJ 1,000 MCG in SODIUM CHLORIDE 0.9% 100 ML 5.1 MCG IV (03:25)
[2025-04-24 04:00] VITALS: BP 93/54; PULSE 65; PULSE 83; RESP 16; TEMP 36.2; O2SAT 97
[2025-04-24 05:17] LABS: Basophils # (Auto) 0.0 Thou/mm3 (0.0-0.2); Basophils % (Auto) 1 % (0-2.5); Eosinophils # (Auto) 0.1 Thou/mm3 (0.0-0.5); Eosinophils % (Auto) 2 % (0-10); Hematocrit 25.2 % (41.0-53.0); Immature Granulocytes Auto 0.04 Thou/mm3 (0.00-0.00); Lymphocytes # (Auto) 0.5 Thou/mm3 (1.0-4.8); Lymphocytes % (Auto) 11 % (10-50); Mean Corpuscular HGB Conc 32.5 g/dl (31.0-37.0); Mean Corpuscular Hemoglobin 32.0 pg (25.0-35.0); Mean Corpuscular Volume 98 fL (80-100); Monocytes # (Auto) 0.6 Thou/mm3 (0.0-0.8); Monocytes % (Auto) 14 % (0-12); Neutrophils # (Auto) 2.9 Thou/mm3 (1.8-7.7); Neutrophils % (Auto) 71 % (37-80); Nucleated Red Blood Cell # 0.00 Thou/mm3 (0.00-0.00); Nucleated Red Blood Cell % 0 /100 WBC (0); Platelet Count 102 Thou/mm3 (140-440); RDW Standard Deviation 56.5 fL (35.1-43.9); Red Blood Count 2.56 Miln/mm3 (4.50-5.90); White Blood Count 4.2 Thou/mm3 (3.8-10.6)
[2025-04-24 05:45] LABS: Hemoglobin 8.2 g/dL (13.5-16.0)
[2025-04-24 06:17] LABS: Alanine Aminotransferase 9 U/L (10-49); Albumin, Serum 2.9 gm/dL (3.5-5.0); Albumin/Globulin Ratio 0.8 (1.2-2.2); Alkaline Phosphatase 96 U/L (46-116); Anion Gap 11 (7-16); Aspartate Amino Transferase 15 U/L (0-34); BUN/Creatinine Ratio 18 Ratio (12-20); Bilirubin,Total 1.4 mg/dL (0.3-1.2); Blood Urea Nitrogen 51 mg/dL (9-23); Calcium 7.9 mg/dL (8.3-10.6); Calcium (Corrected) 8.8 mg/dL (8.5-10.1); Carbon Dioxide 22.6 mMol/L (20.0-31.0); Chloride 105 mMol/L (98-107); Creatinine (Component) 2.9 mg/dL (0.6-1.3); Estimated Creatinine Clearance 31.7 mL/min (>60); Globulin 3.5 gm/dL (2.3-3.5); Glucose 111 mg/dL (74-106); Magnesium 1.6 mg/dL (1.6-2.6); Osmolality,Calculated 292 (275-295); Phosphorous 4.1 mg/dL (2.4-5.1); Potassium 4.6 mMol/L (3.4-5.1); Sodium 139 mMol/L (136-145); Total Protein 6.4 gm/dL (5.7-8.2); eGFR 25 See Note
[2025-04-24] MEDS: Magnesium Sulfate 4 GM Ivpb 4 GM/50 ML BAG IV (06:41)
[2025-04-24 08:00] VITALS: BP 108/60; PULSE 73; RESP 16; TEMP 36.4; O2SAT 98
[2025-04-24 09:00] VITALS: BMI 33.4
[2025-04-24 09:33] VITALS: BP 108/60; PULSE 73
[2025-04-24] MEDS: PANTOPRAZOLE 40 MG TABLET PO (09:33)
[2025-04-24] MEDS: cefTRIAXone/D5w 2gm 2 GM/50 ML BAG IV (09:33)
[2025-04-24] MEDS: CITRIC ACID/SODIUM CITR 15 ML UDC (BICITRA) 30 ML PO (10:20)
--- NOTE | 2025-04-24 10:26 | CHAP ---
Patient received communion from the Spiritual Care Volunteer. (Volunteer was in the hospital from 10:05-10:26)
--- NOTE | 2025-04-24 13:46 | ESDS_ITS ---
<Statement entered by Yvette Fairbanks DO - 04/25/25 08:35> I, Yvette Fairbanks DO, attest that I was physically present for the maldonado portions of the service and evaluated the patient with the resident and I reviewed and discussed the case with the resident and agree with the resident's findings and plans of care as documented above <Statement entered by Marlo Bolivar MD - 04/24/25 14:31> I discussed and supervised with the internal grinding machine operator physician who took care of this patient. I personally saw and examined the patient. I agree with most of the assessment and plan. Disclaimer: Despite multiple revisions, due to the dictation software being used, the document bellow may not be free of grammatical errors including phonetic/typographic errors. However, this does not deter from our commitment to providing health care in the patient's best interest in mind. Plan of care discussed with attending Physician Dr. Tiki Bolivar MD PGY-3 Planned Discharge Date 04/24/25 DS: Providers Provider Date of admission: 04/20/25 17:54 Primary care physician: Physician No Primary/Family Admitting Provider: Haylee Salazar MD Attending Provider on Admission: Haylee Salazar MD Consults: 04/20/25 22:19 Health Equity Referral - Safety Routine Comment: Positive screening for safety needs. 04/21/25 10:19 Consult to Gastroenterology Routine Comment: hx esoph calixto bleed post banding, c/f Up GI bleed Consulting Provider: Jose Degroot Attending Provider on DC: Yvette Fairbanks DO Discharging Provider: Ji Carvalho DO Anticipated date of discharge: 04/24/25 DS: Diagnosis Problem List Completed Was Problem List Reviewed/Reconciled?: Yes Hospital Course Hospital Course Hospital course: Mr. Flores is a 54M with history of cirrhosis secondary to alcohol use, ascites, and esophageal varices s/p bandings presents on 04/20 for SBP. Diagnostic paracentesis in the ER showed 33950 WBC with 2000 RBC, confirming SBP. Ceftriaxone 2g IV QD started, and therapuetic paracentesis removed 4L from pt's abdomen cavity. Albumin infusion started to replace the fluid lost. On 04/22, it was noted that the pt's hemoglobin was down trending, an EGD was performed due to concern of upper GI bleed. [address] bands [address] Degroot, and pt's Hgb remains stable. Pt advised to continue follow up with liver transplant team at [facility], and follow up with Dr. Degroot outpatient in 4-6 weeks. Patient physically and medically stable on discharge. Diagnosis: #Spontaneous Bacterial Peritinitis #Esophageal varices #Decompensated Liver Cirrhosis likely due to alcohol use #hx of paracentesis #Ascites #Acute blood loss anemia #Hx of esophageal varices #Hypoalbuminemia #Coagulopathy #Chr Thrombocytopenia #NAGMA #CKD stage IV #Hyponatremia - resolved Discharge plan: You have been started on the following medications: -Ciprofloxacin 500 mg twice daily for 5 days The following medications have been STOPPED: -spironolactone Please take all other medications as previously prescribed. Please follow up with your primary doctor within 7-10 days. Please return to ED if you develop new or worsening symptoms. Time Spent with Patient Time attestation: Total time spent providing and/or coordinating discharge services: Time spent: Greater than 30 minutes Exam Vital Signs Temp Pulse Resp BP Pulse Ox O2 Del Method O2 Flow Rate 97.6 F 73 16 108/60 98 Room Air 3 04/24/25 08:00 04/24/25 09:33 04/24/25 08:00 04/24/25 09:33 04/24/25 08:00 04/24/25 08:00 04/23/25 12:00 Narrative Exam General: Well appearing, well nourished, in no distress. Oriented x 3, normal mood and affect . Ambulating without difficulty. Skin: Good turgor, no rash, unusual bruising or prominent lesions Neck: Supple, without lesions, bruits, or adenopathy, thyroid non-enlarged and non-tender Heart: No cardiomegaly or thrills; regular rate and rhythm, no murmur or gallop Lungs: Clear to auscultation and percussion. No rales, wheeze, or rhonchi Abdomen: Bowel sounds normal, no tenderness. Ventral hernia noted. Back: Spine normal without deformity or tenderness, no CVA tenderness Discharge Plan Plan Patient Disposition: HOME (Self Care) Patient condition on transfer: Stable Care Plan Goals: You have been started on the following medications: -Ciprofloxacin 500 mg twice daily for 5 days The following medications have been STOPPED: -spironolactone Please take all other medications as previously prescribed. Please follow up with your primary doctor within 7-10 days. Please return to ED if you develop new or worsening symptoms. Prescriptions/Referrals Prescriptions/Med Rec: New ciprofloxacin HCl 500 mg tablet 500 mg PO BID 5 Days Qty: 10 0RF pantoprazole [Protonix] 40 mg tablet,delayed release (DR/EC) 40 mg PO QDAY Qty: 60 0RF Continued furosemide [Lasix] 40 mg tablet 40 mg PO QDAY Qty: 30 0RF propranolol 10 mg tablet 10 mg PO 3XD Patient Comments: TAKE 1 TABLET BY MOUTH THREE TIMES DAILY Discontinued spironolactone [Aldactone] 100 mg tablet 100 mg PO QDAY Qty: 30 0RF furosemide 80 mg tablet 80 mg PO 1XD Patient Comments: TAKE 1 TABLET BY MOUTH ONCE DAILY Referrals: No Primary/Family,Physician [Primary Care Provider] - Patient/Caregiver Discharge Instructions Discharge Activity: activity as tolerated Education Materials: Esophageal Varices, Paracentesis, Upper GI Endoscopy, Understanding Cirrhosis Print Language: Kosovan Stand Alone Forms: Vanessa Award Info., Patient Portal Info Letter Discharge Order Discharge Orders: Discharge (Routine); Ordered 04/24/25 Ordered By: Marlo Bolivar Quality Discharge Quality Measures none
== END 2025-04-24 11:49 | disposition home or self-care (01) | DRG 372 ==
LOC: SERX 17:43 → SERHOLD 18:26 → S3SX 21:44
PROVIDERS: Nurse Practitioner Primary Care; Specialist; Student in an Organized Health Care Education/Training Program; Admitting Provider Student in an Organized Health Care Education/Training Program; Emergency Provider Emergency Medicine; Visit Provider Student in an Organized Health Care Education/Training Program
PROC: (CPT 43239; principal; 2025-04-22 17:30)
DX: K65.2 Spontaneous bacterial peritonitis (principal); D62 Acute posthemorrhagic anemia; D68.9 Coagulation defect, unspecified; E87.1 Hypo-osmolality and hyponatremia; E87.20 Acidosis, unspecified; I85.10 Secondary esophageal varices without bleeding; N18.4 Chronic kidney disease, stage 4 (severe); K76.6 Portal hypertension; J98.11 Atelectasis; K70.31 Alcoholic cirrhosis of liver with ascites; D63.8 Anemia in other chronic diseases classified elsewhere; D69.6 Thrombocytopenia, unspecified; E88.09 Other disorders of plasma-protein metabolism, not elsewhere classified; K42.9 Umbilical hernia without obstruction or gangrene
CPT/HCPCS: 36415; 71045; 80053; 80061; 80307; 81001; 82042; 82140; 82150; 82436; 82945; 83540; 83550; 83615; 83735; 83880; 84100; 84133; 84157; 84300; 84484; 85014; 85018; 85025; 85046; 85610; 85730; 86850; 86900; 86901; 86921; 86922; 87040; 87070; 87075; 87081; 87205; 87811; 89051; 93005; 93225; 94640; 96365; 96366; A4649; J0696; J1200; J1815; J2250; J2354; J3010; J3475; J7050; P9016; P9047; A9270

== ENCOUNTER → 2025-05-31 | Outpatient (BNVA) | payer BC, SELFPAY | END | disposition home or self-care (01) | PROVIDERS: PCP Internal Medicine; Referring Provider Internal Medicine; Visit Provider Urology | DX: N40.1 Benign prostatic hyperplasia with lower urinary tract symptoms (principal); N13.8 Other obstructive and reflux uropathy; I12.9 Hypertensive chronic kidney disease with stage 1 through stage 4 chronic kidney disease, or unspecified chronic kidney disease; N18.30 Chronic kidney disease, stage 3 unspecified; K74.60 Unspecified cirrhosis of liver; R18.8 Other ascites; K42.9 Umbilical hernia without obstruction or gangrene; E66.9 Obesity, unspecified; Z68.32 Body mass index [BMI] 32.0-32.9, adult; K76.6 Portal hypertension | CPT/HCPCS: 81003; 99212; G0463 ==

== ENCOUNTER → 2025-05-31 | Outpatient (CLI) | payer BC, SELFPAY ==
[2025-05-31 18:07] LABS: Prostate Specific Antigen 0.33 ng/mL (0-4.00)
== END | disposition home or self-care (01) ==
LOC: COPL 16:43
PROVIDERS: Referring Provider Urology; Visit Provider Urology
DX: N40.1 Benign prostatic hyperplasia with lower urinary tract symptoms (principal)
CPT/HCPCS: 36415; 84153

== ENCOUNTER → 2025-05-31 | Outpatient (CLI) | payer BC, SELFPAY ==
--- NOTE | 2025-04-24 18:28 | PD.IMPROG ---
Documentation for date of: 04/24/25 Subjective Subjective Interval history: Late entry for the note Case discussed with internal medicine team Okay to discharge patient to be followed by me as an outpatient also follow-up at [facility] Objective Impressions Impression: Status post band ligation of the esophageal varices Chronic liver disease secondary to alcohol with advanced portal hypertension and ascites Outpatient follow-up Assessment & Plan Time Spent With Patient Time: Total time spent is greater than 50% in coordination of care (as documented) at patient's floor/unit and/or counseling patient:
--- NOTE | 2025-05-31 12:40 | XR_ITS ---
Examination: Ultrasound-guided paracentesis Abdominal sonogram limited Date and time of exam: 05/31/2025, 3:15 PM Preliminary ultrasound evaluation demonstrated trace ascitic fluid. No safe window available for paracentesis. Procedure note performed. IMPRESSION: Procedure not performed as above.
[2025-05-31 14:45] LABS: Basophils # (Auto) 0.0 Thou/mm3 (0.0-0.2); Basophils % (Auto) 0 % (0-2.5); Eosinophils # (Auto) 0.1 Thou/mm3 (0.0-0.5); Eosinophils % (Auto) 2 % (0-10); Hematocrit 27.3 % (41.0-53.0); Hemoglobin 9.3 g/dL (13.5-16.0); Immature Granulocytes Auto 0.03 Thou/mm3 (0.00-0.00); Lymphocytes # (Auto) 0.6 Thou/mm3 (1.0-4.8); Lymphocytes % (Auto) 10 % (10-50); Mean Corpuscular HGB Conc 34.1 g/dl (31.0-37.0); Mean Corpuscular Hemoglobin 33.0 pg (25.0-35.0); Mean Corpuscular Volume 97 fL (80-100); Monocytes # (Auto) 0.6 Thou/mm3 (0.0-0.8); Monocytes % (Auto) 11 % (0-12); Neutrophils # (Auto) 4.4 Thou/mm3 (1.8-7.7); Neutrophils % (Auto) 76 % (37-80); Nucleated Red Blood Cell # 0.00 Thou/mm3 (0.00-0.00); Nucleated Red Blood Cell % 0 /100 WBC (0); RDW Standard Deviation 60.1 fL (35.1-43.9); Red Blood Count 2.82 Miln/mm3 (4.50-5.90); White Blood Count 5.8 Thou/mm3 (3.8-10.6)
[2025-05-31 14:46] LABS: Platelet Count 50 Thou/mm3 (140-440)
[2025-05-31 14:49] LABS: INR 1.3 (0.9-1.3); Partial Thromboplastin Time 29.2 Seconds (22.0-36.0); Prothrombin Time 14.0 Seconds (9.0-12.2)
[2025-05-31 15:07] LABS: Slide Review Platelets confirmed
== END | disposition home or self-care (01) ==
PROVIDERS: PCP Nurse Practitioner Family; Referring Provider Nurse Practitioner Family; Visit Provider Nurse Practitioner Family
DX: R18.8 Other ascites (principal); K74.69 Other cirrhosis of liver; Z53.8 Procedure and treatment not carried out for other reasons
CPT/HCPCS: 36415; 76705; 85025; 85610; 85730

== ENCOUNTER 2025-07-01 18:56 | Emergency (ER) | payer BC, SELFPAY ==
[2025-07-01 19:50] LABS: Basophils # (Auto) 0.0 Thou/mm3 (0.0-0.2); Basophils % (Auto) 0 % (0-2.5); Eosinophils # (Auto) 0.1 Thou/mm3 (0.0-0.5); Eosinophils % (Auto) 1 % (0-10); Hematocrit 20.8 % (41.0-53.0); Immature Granulocytes Auto 0.01 Thou/mm3 (0.00-0.00); Lymphocytes # (Auto) 0.5 Thou/mm3 (1.0-4.8); Lymphocytes % (Auto) 12 % (10-50); Mean Corpuscular HGB Conc 35.1 g/dl (31.0-37.0); Mean Corpuscular Hemoglobin 34.6 pg (25.0-35.0); Mean Corpuscular Volume 99 fL (80-100); Monocytes # (Auto) 0.5 Thou/mm3 (0.0-0.8); Monocytes % (Auto) 12 % (0-12); Neutrophils # (Auto) 3.2 Thou/mm3 (1.8-7.7); Neutrophils % (Auto) 75 % (37-80); Nucleated Red Blood Cell # 0.00 Thou/mm3 (0.00-0.00); Nucleated Red Blood Cell % 0 /100 WBC (0); RDW Standard Deviation 57.1 fL (35.1-43.9); Red Blood Count 2.11 Miln/mm3 (4.50-5.90); White Blood Count 4.3 Thou/mm3 (3.8-10.6)
[2025-07-01 19:51] LABS: Hemoglobin 7.3 g/dL (13.5-16.0); Platelet Count 57 Thou/mm3 (140-440)
[2025-07-01 20:07] VITALS: BP 131/71; PULSE 76; RESP 18; TEMP 36.8; O2SAT 99
[2025-07-01 20:11] LABS: Alanine Aminotransferase 77 U/L (10-49); Albumin, Serum 3.0 gm/dL (3.5-5.0); Albumin/Globulin Ratio 0.8 (1.2-2.2); Alkaline Phosphatase 246 U/L (46-116); Anion Gap 9 (7-16); Aspartate Amino Transferase 141 U/L (0-34); BUN/Creatinine Ratio 23 Ratio (12-20); Bilirubin,Total 0.9 mg/dL (0.3-1.2); Blood Urea Nitrogen 56 mg/dL (9-23); Calcium 7.8 mg/dL (8.3-10.6); Calcium (Corrected) 8.6 mg/dL (8.5-10.1); Carbon Dioxide 18.9 mMol/L (20.0-31.0); Chloride 108 mMol/L (98-107); Creatinine (Component) 2.4 mg/dL (0.6-1.3); Globulin 3.8 gm/dL (2.3-3.5); Glucose 98 mg/dL (74-106); Osmolality,Calculated 287 (275-295); Potassium 4.3 mMol/L (3.4-5.1); Sodium 136 mMol/L (136-145); Total Protein 6.8 gm/dL (5.7-8.2); eGFR 31 See Note
--- NOTE | 2025-07-01 20:13 | EDRME_ITS ---
Rapid Medical Screening Exam [facility] Arrival date/time: 07/01/25 18:56 54M with history of alcoholic cirrhosis presents to ED for generalized weakness and needing blood transfusion due to low outpatient labs. Patient denies bloody emesis and dark/red stool. Patient would like to be tapped if he can in the morning. Chief Complaint: Recheck/Abnormal Lab/Rx Vital signs: Vital Signs Temperature 98.2 F 07/01/25 20:07 Pulse Rate 76 07/01/25 20:07 Respiratory Rate 18 07/01/25 20:07 Blood Pressure 131/71 H 07/01/25 20:07 Pulse Oximetry (%) 99 07/01/25 20:07 Oxygen Delivery Method Room Air 07/01/25 20:07
[2025-07-01 20:16] LABS: INR 1.3 (0.9-1.3); Partial Thromboplastin Time 32.1 Seconds (22.0-36.0); Prothrombin Time 14.3 Seconds (9.0-12.2)
[2025-07-01 20:21] LABS: Path Review Blood Smear Sent to Pathologist; Slide Review Platelets confirmed
--- NOTE | 2025-07-01 22:51 | PD.EDRECHK ---
ED Recheck Abnl Lab Rx-RME/HPI General Chief Complaint: Recheck/Abnormal Lab/Rx Stated Complaint: Hemoglobin 5.8 per [facility] Arrival date/time: 07/01/25 18:56 RME / HPI RME / HPI narrative: 07/01/25 18:56 54M with history of alcoholic cirrhosis presents to ED for generalized weakness and needing blood transfusion due to low outpatient labs. Patient denies bloody emesis and dark/red stool. Patient would like to be tapped if he can in the morning. Dr. Perez?[facility] Main ED Evaluation: 54yo male with end-stage liver disease/cirrhosis with known esophageal varices presents after being referred from his PMD after his most recent CBC demonstrated Hgb 5.8. Reports previous blood transfusions and currently complains of generalized progressive fatigue. No chest pain, shortness of breath, dizziness, lightheadedness, or near syncope. No fever, chills, V/D. Patient also notes current progressively increasing abdominal girth. 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 Related Data Home Medications ?Medication ?Instructions ?Recorded ?Confirmed propranolol 10 mg tablet 10 mg PO 3XD 08/07/24 05/31/25 Previous Rx's ?Medication ?Instructions ?Recorded furosemide 40 mg tablet (Lasix) 40 mg PO QDAY #30 tabs 04/01/25 pantoprazole 40 mg tablet,delayed 40 mg PO QDAY #60 tabs 04/24/25 release (Protonix) Allergies Allergy/AdvReac Type Severity Reaction Status Date / Time No Known Allergies Allergy Verified 07/01/25 19:03 Review of Systems Review of Systems Systems Reviewed: All systems reviewed, normal except as documented Past Medical History Past Medical History NEUROLOGIC: Positive Neurological Disorders; Negative Seizures CARDIAC: Positive Cardiac Disorders and Hypertension (no meds); Negative Hypercholesterolemia or Congestive Heart Failure RESPIRATORY: Negative Chronic Obstructive Pulmonary Disease (COPD) or Asthma GASTROINTESTINAL: Positive Gastrointestinal Disorders, Cirrhosis (acities), Gastrointestinal Bleed and Obesity; Negative Pancreatitis, Hemorrhoids or Gastroesophageal Reflux Disease GENITOURINARY: Negative Genitourinary Disorders, Renal Disease or Kidney Stones MUSCULOSKELETAL: Negative Musculoskeletal Disorders, Arthritis or Carpal Tunnel Syndrome ENT: Negative Cataracts ENDOCRINE: Negative Endocrine Disorders, Diabetes Mellitus Type 1 or Diabetes Mellitus Type 2 HEMATOLOGIC: Positive Blood Disorders and Anemia; Negative Sickle Cell Disease or Clotting Problems OTHER HISTORY: Positive Blood Transfusions, Chicken Pox, Measles and Mumps; Negative Autoimmune Disease, Falls, Blood Transfusion Reaction, Anesthesia Reactions or Cancer Family History FAMILY HISTORY: Positive Family Cardiac Disorders; Negative Family Psychiatric Problems, Family Respiratory Disorders, Family Gastrointestinal Problems, Family Cancer, Family Surgery or Family Anesthesia Reaction Surgical History SURGICAL: Negative Ear Surgery, Tympanostomy Tube, Eye Surgery, Nose Surgery, Oral Surgery, Tonsillectomy, Adenoidectomy, Cochlear Implant, Corneal Transplant, Throat Surgery, Abdominal Surgery, Tracheostomy, Gastric Bypass Surgery, Gastrostomy, Bowel Surgery, Nephrectomy, Transurethral Resection, Joint Replacement, Amputation, Open Reduction Internal Fixation, Arthroscopy, Neurologic Surgery, Brain Shunt or Vasectomy Social History SMOKING STATUS: Never smoker SUBSTANCE USE: does not use ED Exam Narrative Physical exam: GENERAL APPEARANCE: alert and oriented x 4, chronically-ill appearing, no acute distress VITALS: All vitals were reviewed and the pulse ox is 99% on room air, which is normal according to my interpretation. HEENT: Normocephalic, atraumatic; mild scleral icterus, pupils equal, round, reactive to light; EOMI; mucous membranes pink, moist; oropharynx clear NECK: Suppl, no JVDe LUNGS: CTABL; no wheezes, no rales, no rhonchi HEART: Regular rate, regular rhythm; normal S1, S2; no murmurs ABDOMEN: obese, 2+ distended; soft, no tenderness, no guarding, no gross fluid wave EXTREMITIES: atraumatic; no edema NEUROLOGIC: awake; alert and oriented x4; cranial nerves II-XII grossly intact; no focal sensory or motor deficits PSYCHIATRIC: appropriate mood and affect SKIN: warm, dry, normal color; no rashes Course Quality Measures none Orders Category Date Time 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 Q4H START 00 Care 07/01/25 23:00 Active Continuous Pulse Oximetry QSHIFT Care 07/01/25 23:00 Completed Insert IV NOW Care 07/01/25 19:10 Active Transfuse,blood/blood products NOW Care 07/01/25 23:04 Active Vital Signs, Non-Routine Q30M Care 07/01/25 23:15 Ordered Vital Signs, Non-Routine Timed Care 07/01/25 23:00 Ordered CBC Stat Lab 07/01/25 19:35 Completed CBC Stat Lab 07/01/25 23:12 Completed CMP [Comprehensive Metabolic Panel] Stat Lab 07/01/25 19:35 Completed INR [Prothrombin Time with INR] Stat Lab 07/01/25 19:35 Completed PTT [Partial Thromboplastin Time] Stat Lab 07/01/25 19:35 Completed Packed Cells [Red Blood Cells] Stat Lab 07/02/25 02:52 Results Path Review Blood Smear Stat Lab 07/01/25 19:35 Completed Type and Screen Stat Lab 07/01/25 19:35 Results Acetaminophen Tab [Tylenol Tab] Med 07/01/25 23:00 Discontinued 650 mg PO X1 ONE DiphenhydrAMINE [Benadryl] Med 07/01/25 23:00 Discontinued 25 mg PO X1 ONE Furosemide [Lasix Inj] Med 07/02/25 03:06 Discontinued 20 mg IVP X1 ONE Furosemide [Lasix Inj] Med 07/01/25 23:00 Discontinued 40 mg IVP X1 ONE Vital Signs Vital signs: Vital Signs Temperature 98.2 F 07/01/25 20:07 Pulse Rate 76 07/01/25 20:07 Respiratory Rate 18 07/01/25 20:07 Blood Pressure 131/71 H 07/01/25 20:07 Pulse Oximetry (%) 99 07/01/25 20:07 Oxygen Delivery Method Room Air 07/01/25 20:07 Recheck / Abnormal Lab / Rx MDM Narrative MDM Narrative:: Scribe Attestation: 07/01/25 - Deepthi Arora am scribing for and in the presence of Dr. Perez. 54yo male with end-stage liver disease/cirrhosis with known esophageal varices presents after being referred from his PMD after his most recent CBC demonstrated Hgb 5.8. Reports previous blood transfusions and currently complains of generalized progressive fatigue. Please see PE findings. Lab markers demonstrated anemia with Hgb 7.6 (baseline 8-9). Chemistries demonstrate evidence of chronic renal insufficiency with Creatinine 2.4, mildly increased transaminase levels, and reduction of albumin. Patient typed and crossed for 2 units of blood. Premedicated with Benadryl, Tylenol, and Lasix with subsequent diuresis and reduction of blood pressure to the 90s. Abdominal girth decreased, belly is soft, and patient without respiratory distress. Given potential risk of infection, trending down of blood pressure, and improved clinical exam, will defer paracentesis at this time and discharge home after blood transfusion. Patient data External records reviewed:: [facility] previous records (Per chart review, patient was admitted here on 04/20/25 for SBP (spontaneous bacterial peritonitis).) Clinical information provided by:: patient Social determinants that could affect healthcare access:: alcohol use Patient has the following chronic illnesses:: cirrhosis secondary to alcohol use, ascites, and esophageal varices s/p bandings How is presenting disease/condition affected by chronic disease/condition?: caused by Evaluation data The following diagnostics were reviewed and interpreted by me:: lab results Lab and/or radiology exams considered but not ordered:: none Interpretation Summary: See MDM. Medications / Prescriptions Medications or Prescriptions considered but not ordered:: none Medication administrations:: Medication Administration History Discontinued Medications Acetaminophen (Acetaminophen 325 Mg Tablet) 650 mg PO X1 ONE Stop: 07/01/25 23:01 Last Admin: 07/02/25 02:31 Dose: 650 mg Documented By: DT Diphenhydramine HCl (Diphenhydramine 25 Mg Capsule) 25 mg PO X1 ONE Stop: 07/01/25 23:01 Last Admin: 07/02/25 02:31 Dose: 25 mg Documented By: DT Furosemide (Furosemide Inj 10 Mg/Ml Vial 2 Ml) 40 mg IVP X1 ONE Stop: 07/01/25 23:01 Last Admin: 07/02/25 03:06 Dose: Not Given Documented By: DT Non-Admin Reason: Cancelled by Provider Furosemide (Furosemide Inj 10 Mg/Ml Vial 2 Ml) 20 mg IVP X1 ONE Stop: 07/02/25 03:07 see above Consultations Consultation(s) initiated? (list below): No Diagnosis Recheck Differential Diagnosis: other (ascites, fluid overload, anemia, electrolyte abnormality) Most likely diagnosis given after review of the tests above:: see clinical impression below Admission Indicated Admission indicated?: not indicated Admission Request Was there a request for admission?: No Disposition Plan Disposition Plan: Discharge Discharge Attestation Discharge Attestation: The patient and all family members were given an opportunity to ask questions and understood the discharge instructions. Discharge instructions specifically effects, indications for sooner follow up or return to the emergency department, and the expected course of current diagnosis. Patient condition: Stable Discharge Plan Plan Patient Disposition: HOME (Self Care) Discharge Disposition comment: Stable Prescriptions/Referrals Prescriptions/Med Rec: No Action furosemide [Lasix] 40 mg tablet 40 mg PO QDAY Qty: 30 0RF pantoprazole [Protonix] 40 mg tablet,delayed release (DR/EC) 40 mg PO QDAY Qty: 60 0RF propranolol 10 mg tablet 10 mg PO 3XD Patient Comments: TAKE 1 TABLET BY MOUTH THREE TIMES DAILY Referrals: Yandy Hu FNP [Primary Care Provider] - In 1 week Problem List Clinical Impression: Chronic blood loss anemia, Ascites of liver Patient/Caregiver Discharge Instructions Discharge Activity: activity as tolerated Diet Instructions: Low-salt Education Materials: Anemia, ED Ascites Additional Instructions: Follow-up with GI specialist for consideration of outpatient paracentesis if needed. Will increase Aldactone to twice a day for 3 days only. Return for fever vomiting escalating abdominal pain or worsening illness. Print Language: Uzbek Stand Alone Forms: Vanessa Award Info., Patient Portal Info Letter
[2025-07-01 23:25] LABS: Basophils # (Auto) 0.0 Thou/mm3 (0.0-0.2); Basophils % (Auto) 0 % (0-2.5); Eosinophils # (Auto) 0.1 Thou/mm3 (0.0-0.5); Eosinophils % (Auto) 1 % (0-10); Hematocrit 21.9 % (41.0-53.0); Hemoglobin 7.6 g/dL (13.5-16.0); Immature Granulocytes Auto 0.02 Thou/mm3 (0.00-0.00); Lymphocytes # (Auto) 0.6 Thou/mm3 (1.0-4.8); Lymphocytes % (Auto) 14 % (10-50); Mean Corpuscular HGB Conc 34.7 g/dl (31.0-37.0); Mean Corpuscular Hemoglobin 34.2 pg (25.0-35.0); Mean Corpuscular Volume 99 fL (80-100); Monocytes # (Auto) 0.5 Thou/mm3 (0.0-0.8); Monocytes % (Auto) 12 % (0-12); Neutrophils # (Auto) 3.0 Thou/mm3 (1.8-7.7); Neutrophils % (Auto) 72 % (37-80); Nucleated Red Blood Cell # 0.00 Thou/mm3 (0.00-0.00); Nucleated Red Blood Cell % 0 /100 WBC (0); Platelet Count 59 Thou/mm3 (140-440); RDW Standard Deviation 58.8 fL (35.1-43.9); Red Blood Count 2.22 Miln/mm3 (4.50-5.90); White Blood Count 4.1 Thou/mm3 (3.8-10.6)
[2025-07-01 23:51] VITALS: BP 118/74; PULSE 73; PULSE 74; RESP 20; TEMP 36.6; O2SAT 100; BMI 37.9
[2025-07-02] VITALS (14 sets, daily range): BP systolic 86–114; BP diastolic 54–79; PULSE 55–70; RESP 12–20; TEMP 36.5–37; O2SAT 99–100
[2025-07-02 00:33] LABS: Slide Review Platelets confirmed
[2025-07-02] MEDS: ACETAMINOPHEN 325 MG TABLET 650 MG PO (02:31)
== END 2025-07-02 09:57 | disposition home or self-care (01) ==
PROVIDERS: Physician Assistant; Emergency Provider Emergency Medicine; PCP Nurse Practitioner Family
DX: D50.0 Iron deficiency anemia secondary to blood loss (chronic) (principal); K70.31 Alcoholic cirrhosis of liver with ascites
CPT/HCPCS: 36415; 36430; 80053; 85025; 85610; 85730; 86850; 86900; 86901; 86921; 86922; 99284; P9016; A9270

== ENCOUNTER → 2025-07-08 | Outpatient (CLI) | payer BC, SELFPAY ==
--- NOTE | 2025-07-08 11:00 | XR_ITS ---
Examination: Ultrasound-guided paracentesis Abdominal sonogram limited Date and time of exam: July 08, 2025, 1125 hours INDICATIONS: Cirrhosis, increasing ascites and abdominal distention this week Informed consent provided. A timeout was completed verifying correct patient, procedure, site, positioning, and special adequate movement if applicable. Technique: Multiple sonographic images of the abdomen have been obtained. Appropriate area for paracentesis was marked. Local anesthesia is obtained with 1% lidocaine. Yueh catheter is successfully introduced. Findings: Abdominal sonographic images demonstrate sufficient ascitic fluid for paracentesis. After placing the Yueh catheter, 7850 cc of fluid were successfully removed. During and after completion of the procedure the patient appear in satisfactory and stable condition with no complications observed. Estimated blood loss 0 cc Impression: Abdominal ascites Successful ultrasound-guided paracentesis as described above
== END | disposition home or self-care (01) ==
PROVIDERS: PCP Nurse Practitioner Family; Referring Provider Nurse Practitioner Family; Visit Provider Radiology Diagnostic Radiology
DX: K70.31 Alcoholic cirrhosis of liver with ascites (principal)
CPT/HCPCS: 49083; C1729

== ENCOUNTER → 2025-08-02 | Outpatient (CLI) | payer BC, SELFPAY ==
--- NOTE | 2025-08-02 12:00 | XR_ITS ---
Examination: Ultrasound-guided paracentesis Abdominal sonogram limited Date and time of exam: August 02, 2025, 1233 hours INDICATIONS: Cirrhosis, increasing in size abdominal distention is 20 Informed consent provided. A timeout was completed verifying correct patient, procedure, site, positioning, and special adequate movement if applicable. Technique: Multiple sonographic images of the abdomen have been obtained. Appropriate area for paracentesis was marked. Local anesthesia is obtained with 1% lidocaine. Yueh catheter is successfully introduced. Findings: Abdominal sonographic images demonstrate sufficient ascitic fluid for paracentesis. After placing the Yueh catheter, 9400 cc of fluid were successfully removed. During and after completion of the procedure the patient appear in satisfactory and stable condition with no complications observed. Estimated blood loss 0 cc Impression: Abdominal ascites Successful ultrasound-guided paracentesis as described above
== END | disposition home or self-care (01) ==
LOC: SIRX 11:19
PROVIDERS: PCP Nurse Practitioner Family; Referring Provider Nurse Practitioner Family; Visit Provider Radiology Diagnostic Radiology
DX: K70.31 Alcoholic cirrhosis of liver with ascites (principal)
CPT/HCPCS: 49083

== ENCOUNTER → 2025-08-17 | Outpatient (CLI) | payer BC, SELFPAY ==
[2025-08-17 15:00] LABS: Basophils # (Auto) 0.0 Thou/mm3 (0.0-0.2); Basophils % (Auto) 0 % (0-2.5); Eosinophils # (Auto) 0.1 Thou/mm3 (0.0-0.5); Eosinophils % (Auto) 2 % (0-10); Hematocrit 23.6 % (41.0-53.0); Immature Granulocytes Auto 0.02 Thou/mm3 (0.00-0.00); Lymphocytes # (Auto) 0.5 Thou/mm3 (1.0-4.8); Lymphocytes % (Auto) 11 % (10-50); Mean Corpuscular HGB Conc 34.7 g/dl (31.0-37.0); Mean Corpuscular Hemoglobin 34.0 pg (25.0-35.0); Mean Corpuscular Volume 98 fL (80-100); Monocytes # (Auto) 0.5 Thou/mm3 (0.0-0.8); Monocytes % (Auto) 9 % (0-12); Neutrophils # (Auto) 3.9 Thou/mm3 (1.8-7.7); Neutrophils % (Auto) 77 % (37-80); Nucleated Red Blood Cell # 0.00 Thou/mm3 (0.00-0.00); Nucleated Red Blood Cell % 0 /100 WBC (0); Platelet Count 91 Thou/mm3 (140-440); RDW Standard Deviation 56.4 fL (35.1-43.9); Red Blood Count 2.41 Miln/mm3 (4.50-5.90); White Blood Count 5.1 Thou/mm3 (3.8-10.6)
[2025-08-17 15:04] LABS: Hemoglobin 8.2 g/dL (13.5-16.0)
[2025-08-17 15:11] LABS: INR 1.3 (0.9-1.3); Partial Thromboplastin Time 30.6 Seconds (22.0-36.0); Prothrombin Time 13.7 Seconds (9.0-12.2)
== END | disposition home or self-care (01) ==
LOC: SIRX 14:11 → SLAB 08-18 12:15
PROVIDERS: PCP Nurse Practitioner Family; Referring Provider Nurse Practitioner Family; Visit Provider Nurse Practitioner Family
DX: K74.60 Unspecified cirrhosis of liver (principal)
CPT/HCPCS: 36415; 85025; 85610; 85730

== ENCOUNTER → 2025-08-18 | Outpatient (CLI) | payer BC, SELFPAY ==
--- NOTE | 2025-08-18 12:30 | XR_ITS ---
Examination: Ultrasound-guided paracentesis Abdominal sonogram limited Date and time of exam: August 18, 2025, 1250 hours INDICATIONS: Cirrhosis, increasing ascites abdominal distention today Informed consent provided. A timeout was completed verifying correct patient, procedure, site, positioning, and special adequate movement if applicable. Technique: Multiple sonographic images of the abdomen have been obtained. Appropriate area for paracentesis was marked. Local anesthesia is obtained with 1% lidocaine. Yueh catheter is successfully introduced. Findings: Abdominal sonographic images demonstrate sufficient ascitic fluid for paracentesis. After placing the Yueh catheter, 9600 cc of fluid were successfully removed. During and after completion of the procedure the patient appear in satisfactory and stable condition with no complications observed. Estimated blood loss 0 cc Impression: Abdominal ascites Successful ultrasound-guided paracentesis as described above
== END | disposition home or self-care (01) ==
PROVIDERS: PCP Nurse Practitioner Family; Referring Provider Nurse Practitioner Family; Visit Provider Nurse Practitioner Family
DX: K70.31 Alcoholic cirrhosis of liver with ascites (principal)
CPT/HCPCS: 49083; C1729

== ENCOUNTER 2025-08-29 18:22 | Emergency (ER) | payer BC, SELFPAY ==
--- NOTE | 2025-08-29 18:50 | PD.EDRME ---
Rapid Medical Screening Exam RME Arrival date/time: 08/29/25 18:22 This is a case of 54-year-old male with history of cirrhosis with paracentesis and umbilical hernia came in with the abdominal pain and distention for 3 days worsening of the symptoms this patient decided to sought consult here in the emergency room Chief Complaint: General Adult/Misc Complain Time Seen by Provider: 08/29/25 18:28 Exam: Moderate tenderness on abdomen with abdominal distention no guarding no rebound no rigidity Clinical Impression: Abdominal pain abdominal distention
[2025-08-29 19:20] LABS: Basophils # (Auto) 0.0 Thou/mm3 (0.0-0.2); Basophils % (Auto) 0 % (0-2.5); Eosinophils # (Auto) 0.1 Thou/mm3 (0.0-0.5); Eosinophils % (Auto) 1 % (0-10); Hematocrit 23.6 % (41.0-53.0); Immature Granulocytes Auto 0.11 Thou/mm3 (0.00-0.00); Immature Reticulocyte Fraction 15.9 % (2.3-13.4); Lymphocytes # (Auto) 0.3 Thou/mm3 (1.0-4.8); Lymphocytes % (Auto) 4 % (10-50); Mean Corpuscular HGB Conc 34.3 g/dl (31.0-37.0); Mean Corpuscular Hemoglobin 33.8 pg (25.0-35.0); Mean Corpuscular Volume 98 fL (80-100); Monocytes # (Auto) 1.2 Thou/mm3 (0.0-0.8); Monocytes % (Auto) 17 % (0-12); Neutrophils # (Auto) 5.1 Thou/mm3 (1.8-7.7); Neutrophils % (Auto) 76 % (37-80); Nucleated Red Blood Cell # 0.00 Thou/mm3 (0.00-0.00); Nucleated Red Blood Cell % 0 /100 WBC (0); RDW Standard Deviation 59.0 fL (35.1-43.9); Red Blood Count 2.40 Miln/mm3 (4.50-5.90); Reticulocyte % (Auto) 2.5 % (0.5-1.5); Reticulocyte Absolute Auto 60.0 Biln/L (25.0-75.0); Reticulocyte Hgb Content 31.0 pg (28.0-35.0); White Blood Count 6.8 Thou/mm3 (3.8-10.6)
[2025-08-29 19:21] LABS: Hemoglobin 8.1 g/dL (13.5-16.0); Platelet Count 75 Thou/mm3 (140-440)
[2025-08-29 19:37] LABS: Alanine Aminotransferase 49 U/L (10-49); Albumin, Serum 2.6 gm/dL (3.5-5.0); Anion Gap 9 (7-16); Aspartate Amino Transferase 72 U/L (0-34); BUN/Creatinine Ratio 15 Ratio (12-20); Bilirubin,Total 1.1 mg/dL (0.3-1.2); Blood Urea Nitrogen 56 mg/dL (9-23); Calcium 8.0 mg/dL (8.3-10.6); Carbon Dioxide 18.3 mMol/L (20.0-31.0); Chloride 107 mMol/L (98-107); Creatinine (Component) 3.7 mg/dL (0.6-1.3); Glucose 97 mg/dL (74-106); Osmolality,Calculated 283 (275-295); Potassium 4.1 mMol/L (3.4-5.1); Sodium 134 mMol/L (136-145); Total Protein 6.3 gm/dL (5.7-8.2); eGFR 19 See Note
[2025-08-29 19:38] LABS: Albumin/Globulin Ratio 0.7 (1.2-2.2); Alkaline Phosphatase 125 U/L (46-116); Calcium (Corrected) 9.1 mg/dL (8.5-10.1); Globulin 3.7 gm/dL (2.3-3.5); Lipase 48 U/L (12-53)
[2025-08-29 19:56] LABS: Ammonia < 10 uMol/L (11-32)
[2025-08-29 20:21] LABS: Slide Review Platelets confirmed
--- NOTE | 2025-08-29 21:04 | PD.EDADULT ---
ED General RME/HPI General Chief complaint: General Adult/Misc Complain Stated complaint: CAME FOR THORACENTESIS; ASCITES Time Seen by Provider: 08/29/25 18:28 Arrival date/time: 08/29/25 18:22 RME / HPI RME / HPI narrative: 08/29/25 18:22 This is a case of 54-year-old male with history of cirrhosis with paracentesis and umbilical hernia came in with the abdominal pain and distention for 3 days worsening of the symptoms this patient decided to sought consult here in the emergency room Dr. Mendez?s Main ED Evaluation: 54yo male who had a recent hepatic histotripsy ablation at [facility] on 08/25/25, history of hepatocellular carcinoma presents to the ED requesting a paracentesis. Patient states he's had worsening abdominal pain, distention, and shortness of breath for the last 3 days. Patient denies any N/V, fever, chills, or any other associated symptoms. NKA. Related Data Home Medications ?Medication ?Instructions ?Recorded ?Confirmed propranolol 10 mg tablet 10 mg PO 3XD 08/07/24 08/29/25 acetaminophen 500 mg tablet 500 mg PO Q4H PRN pain 08/29/25 08/29/25 ergocalciferol (vitamin D2) 1,250 08/29/25 mcg (50,000 unit) capsule ferrous sulfate 325 mg (65 mg mg BID 08/29/25 iron) tablet (FeroSul) magnesium tab PO 08/29/25 midodrine 5 mg tablet 5 mg PO TID PRN n/a 08/29/25 08/29/25 spironolactone 100 mg tablet 100 mg PO Q24H 08/29/25 08/29/25 Previous Rx's ?Medication ?Instructions ?Recorded furosemide 40 mg tablet (Lasix) 40 mg PO QDAY #30 tabs 04/01/25 ferrous sulfate 325 mg (65 mg 325 mg PO BID #60 tabs 08/29/25 iron) tablet (iron) furosemide 40 mg tablet (Lasix) 40 mg PO QAM #30 tabs 08/29/25 midodrine 5 mg tablet 5 mg PO TID #90 tabs 08/29/25 spironolactone 100 mg tablet 100 mg PO QAM #30 tabs 08/29/25 Allergies Allergy/AdvReac Type Severity Reaction Status Date / Time No Known Allergies Allergy Verified 08/29/25 18:24 Review of Systems Review of Systems Systems Reviewed: All systems reviewed, normal except as documented ED Exam Narrative Physical exam: Generally patient is alert chronically ill-appearing not dyspneic or tachypneic and in no obvious distress, eyes show icteric sclera, heart regular rate and rhythm, lungs clear to auscultation equal bilaterally, abdomen is very distended with obvious ascites and a positive fluid wave without tenderness or rebound tenderness. Neurologic exam shows Caret Coma Scale of 15 Course Quality Measures none Orders Category Date Time Status Ammonia Stat Lab 08/29/25 19:08 Completed CBC Stat Lab 08/29/25 19:08 Completed Comprehensive Metabolic Panel Stat Lab 08/29/25 19:08 Completed Lipase Stat Lab 08/29/25 19:08 Completed Reticulocyte Count Stat Lab 08/29/25 19:08 Completed Urinalysis Stat Lab 08/29/25 18:50 Ordered Vital Signs Vital signs: Vital Signs Respiratory Rate 20 08/29/25 21:54 Blood Pressure 105/62 08/29/25 21:54 Pulse Oximetry (%) 100 08/29/25 21:54 Oxygen Delivery Method Room Air 08/29/25 21:54 Discharge Plan Plan Patient Disposition: HOME (Self Care) Prescriptions/Referrals Prescriptions/Med Rec: New furosemide [Lasix] 40 mg tablet 40 mg PO QAM Qty: 30 0RF spironolactone 100 mg tablet 100 mg PO QAM Qty: 30 0RF midodrine 5 mg tablet 5 mg PO TID Qty: 90 0RF Rx Instructions: do not give last dose of day after 6PM or within 4 hrs of bedtime ferrous sulfate [iron] 325 mg (65 mg iron) tablet 325 mg PO BID Qty: 60 0RF No Action furosemide [Lasix] 40 mg tablet 40 mg PO QDAY Qty: 30 0RF spironolactone 100 mg tablet 100 mg PO Q24H midodrine 5 mg tablet 5 mg PO TID PRN (Reason: n/a) ferrous sulfate [FeroSul] 325 mg (65 mg iron) tablet BID Patient Comments: TAKE 1 TABLET BY MOUTH THREE TIMES DAILY acetaminophen 500 mg tablet 500 mg PO Q4H PRN (Reason: pain) magnesium Tablet PO ergocalciferol (vitamin D2) 1,250 mcg (50,000 unit) capsule Patient Comments: TAKE 1 CAPSULE BY MOUTH ONCE A WEEK propranolol 10 mg tablet 10 mg PO 3XD Patient Comments: TAKE 1 TABLET BY MOUTH THREE TIMES DAILY Referrals: Israel Salinas MD [Primary Care Provider] - In 1 week Problem List Clinical Impression: Ascites, Status post abdominal paracentesis Patient/Caregiver Discharge Instructions Print Language: Indonesian Stand Alone Forms: Vanessa Award Info., Patient Portal Info Letter MDM Narrative MDM hospital course (for use when minimal MDM required): Scribe Attestation: 08/29/25 - Deepthi Arora am scribing for and in the presence of Dr. Mendez. Procedure note: After consent was obtained the right lower quadrant ultrasound-guided paracentesis was carried out here in the emergency room. The skin was cleansed using ChloraPrep and anesthetized with 1% lidocaine without epinephrine the peritoneum was entered using a catheter over needle technique and approximately 5-1/2 to 6 L of dark lema brown fluid was removed from the peritoneal cavity. There were no episodes of hypotension. Patient tolerated the procedure well. I do not believe this patient have peritonitis. I will make sure the patient has all the medications he needs to be sent into the pharmacy. He may get future paracentesis done by Dr. Brown has done them in the past. Clinical Information Provided by: patient Medical Records reviewed [facility] (Per chart review, patient had a paracentesis here on 08/18/25.) Meds/Rx considered, not ordered None Labs/Rad/Tests considered, not ordered None Chronic Illness/Social Conditions Explain: Hx end-stage liver disease/cirrhosis with known esophageal varices Labs Labs: interpreted by me Diagnosis Differential Diagnosis ED Complaint MDM: See MDM.
[2025-08-29 21:54] VITALS: BP 105/62; RESP 20; O2SAT 100
[2025-08-29 22:43] VITALS: BP 116/71; PULSE 80; RESP 22; TEMP 36.4; O2SAT 100
--- NOTE | 2025-08-29 23:17 | PD.RESPROC ---
PROCEDURES: Procedure Date / Time 08/29/25 1984 Paracentesis Indication: Ascites Informed consent obtained: from patient Time out done, and the following verified: correct patient, side and site, procedure, patient position and implants and/or equipment Procedure: therapeutic paracentesis Location: RLQ Local anesthetic used: lidocaine 1% Amount of anesthesia used (mL): 10 Bedside ultrasound used: yes, Ascites confirmed and location marked Preparation: 11 blade used to make christine in skin Amount of fluid obtained (mL): 570 Fluid: clear and cloudy Size of needle used: 7 EBL(ml): 2 Post procedure exam: awake, alert, normal BP, normal HR and normal SpO2 Patient tolerated procedure: well and no complications Complications: none Procedure comment: A time-out was performed. My hands were washed immediately prior to the procedure. I wore a surgical cap, mask with protective eyewear, sterile gown and sterile gloves throughout the procedure. The area was cleansed and draped in usual sterile fashion using chlorhexidine scrub. Anesthesia was achieved with 1% lidocaine. The right lower quadrant of the abdomen was prepped and draped in a sterile fashion using chlorhexidine scrub. 1% lidocaine was used to numb the skin, soft tissue and peritoneum. The paracentesis catheter was inserted and advanced with negative pressure until yellow/straw colored fluid was aspirated. No fluid was sent for laboratory analysis. The catheter was then connected to the vaccutainer and 5.7 liters of additional ascitic fluid were drained. The catheter was removed and no leaking was noted. A bandaid was placed over the puncture wound. The patient tolerated the procedure well without any immediate complications. Estimated blood loss was 2mL.
== END 2025-08-30 00:08 | disposition home or self-care (01) ==
PROVIDERS: Nurse Practitioner Family; Emergency Provider Emergency Medicine; PCP Internal Medicine
DX: K74.60 Unspecified cirrhosis of liver (principal); R18.8 Other ascites
CPT/HCPCS: 49083; 36415; 80053; 81001; 82140; 83690; 85025; 85046; 99282